=== PATIENT | male | born 1970 | race Caucasian/White ===

== ENCOUNTER 2024-02-23 02:22 | Inpatient (IN) | payer OTHER, SELFPAY ==
[2024-02-23] VITALS (60 sets, daily range): BP systolic 109–154; BP diastolic 55–125; BMI 29.1; BMI 28.8
--- NOTE | 2024-02-23 00:33 | ED.GENMED ---
History of Present Illness
General
Chief Complaint: Chest Pain
Source: patient
Exam Limitations: none
Time Seen by Provider: 02/23/24 00:33
History of Present Illness
History of Present Illness:
See MDM
Past History
Past History
ED Past Medical History: CAD and HTN; Negative Asthma, Hypercholesterolemia or NIDDM
ED Past Surgical History: Cardiac (Cardiac stents)
Social History
Tobacco: Smoker
Alcohol: None
Drug: None
Personal:
Living: with family
Employment: Employed
Family History
Family History: Hypertension
Phy Exam
Physical Exam
Physical Exam:
See MDM
Scores
Heart Score for Chest Pain Patients
STEMI patient?: Yes
Course
Orders/Labs/Results
Orders:
Orders
02/23/24 00:13
ECG [Electrocardiogram (*1)] Urgent
Reason for Study: Chest Pain
EKG- Treatment ONCE
02/23/24 00:20
Cardiac Monitoring- Treatment ONCE
02/23/24 00:24
PTT Urgent
02/23/24 00:25
CMP [Comprehensive Metabolic Panel] Urgent
Complete Blood Count/With Diff Urgent
Troponin I Urgent
MDM/Problems Addressed
Differential Diagnosis Includes:
HPI and MDM Narrative:
54-year-old male presenting with chest pain for the past 2 to 3 hours. Patient has significant past medical history of coronary artery disease with 3 stents placed in 2010. EKG performed in triage is concerning for STEMI. STEMI alert called
immediately.
Case discussed with cardiology at 12:19 AM who will evaluate at bedside
Cardiology at bedside within 15 minutes
Patient is an active smoker still and stopped taking all of his medicine several months ago
Physical exam
General: Uncomfortable
HEENT: protecting airway
Neck: appears supple
CV: No evidence of cyanosis. Mild tachycardia
Resp: No accessory muscle use
Abd: Non-distended
Extremities: No deformities
Neuro: alert
Psych: Normal affect
Skin: Intact
Problems Addressed including Acute and Chronic Conditions affecting care:
1. STEMI
Acuity: acute
Prognosis: unstable
Details: STEMI alert was called immediately. Patient given aspirin, Brilinta and heparin. Patient given multiple doses of nitroglycerin due to ongoing pain
Differential Diagnosis (but not limited to): STEMI, in-stent stenosis
Testing considered: Chest x-ray
Drug therapy (if applicable): OTC meds, please see d/c instruction regarding Rx drugs
Amount and/or Complexity of Data Reviewed
Clinical info obtained from: Patient
External data reviewed: N/A
Labs I independently reviewed (but not limited to): [ ]
Radiology: N/A
Pulse Ox: not hypoxic
EKG independently reviewed: Sinus rhythm, normal axis, ST elevation anteriorly
Bean Snipper: Sinus tachycardia
Critical Care: The high probability of a clinically significant, sudden or life threatening deterioration of the cardiovascular system(s) required my full and direct attention, intervention and personal management. The aggregate critical care time
was 31 minutes. This time is in addition to time spent performing reported procedures but includes the following:
[x] Data Review and interpretation
[x] Patient assessment and monitoring of vital signs
[x] Documentation
[x] Medication orders and management
Risk of Complication:
Social Determinants of health: Good social support
Discussed with other providers: Trials Manager
Escalation of Care includes Admit/Obs: Given the concern for STEMI, will admit to the [employer]
Occasional wrong word or 'sound a like' substitutions may have occurred due to the inherent limitations of voice recognition software. Read the chart carefully and recognize, using context, where substitutions have occurred.
*Critical Care Note
Total Time (30-74mins, 75-104mins- exclusive of procedures): 31 min
ED Attending Note
-
Portions of this chart may have been created with voice recognition software.� Occasional wrong word or��sound alike� substitutions may have occurred due to the inherent limitations of voice recognition software.
Discharge Plan
Departure
Patient Disposition: [facility]
Date of Disposition: 02/23/24
Time of Disposition: 00:42
Admit to: labeling specialist
Presentation/result/management discussed w/ accepting MD/DO: Trials Manager
Discharge Problem:
ST elevation (STEMI) myocardial infarction
Prescriptions:
No Action
atorvastatin 80 mg Tablet
80 mg PO DAILY
aspirin 81 mg Tablet,Delayed Release (Dr/Ec)
81 mg PO DAILY
lisinopril 5 mg Tablet
5 mg PO DAILY
metoprolol succinate 25 mg Tablet Extended Release 24 Hr
25 mg PO DAILY
acetaminophen [acetaminophen] 325 mg tablet
650 mg PO Q6HPRN PRN (Reason: mild pain) Qty: 14 0RF
ibuprofen 200 mg tablet
400 - 600 mg PO Q6HPRN PRN (Reason: moderate pain) Qty: 1 0RF
oxycodone 5 mg tablet
5 mg PO Q6HPRN PRN (Reason: breakthrough/severe pain) Qty: 8 0RF
Interventions
Interventions:
*Risk Screen - Suicide Last Done: 02/23/24 00:32
*General Assessment Last Done: 02/23/24 00:32
*Neglect/Abuse Screening Last Done: 02/23/24 00:32
*ED COVID-19 Vaccine History Last Done: 02/23/24 00:32
Discharge Date and Time
Print Language: KHMER
[2024-02-23 00:38] LABS: % Basophils 0.5 % (0-2); % Eosinophils 0.5 % (0-6); % Immature Granulocytes 0.5 % (0-0.5); % Lymphocytes 34.9 % (20.5-51.1); % Monocytes 10.3 % (1.7-9.3); % Neutrophils 53.3 % (42.2-75.2); Absolute Basophils 0.1 10^3/uL (0-0.2); Absolute Eosinophils 0.1 10^3/uL (0-0.7); Absolute Immature Granulocytes 0.1 10^3/uL (0-0.05); Absolute Lymphocytes 4.6 10^3/uL (1.2-3.4); Absolute Monocytes 1.4 10^3/uL (0.1-0.6); Hematocrit 47.9 % (39.0-52.0); Hemoglobin 16.8 g/dL (13.0-18.0); Mean Corp Hgb Conc. 35.1 g/dL (33.0-37.0); Mean Corpuscular Hgb 30.4 pg (27.0-31.0); Mean Corpuscular Volume 86.6 fL (80.0-94.0); Mean Platelet Volume 10.9 fL (7.4-10.4); Nucleated Red Blood Cells % 0 % (-); Platelet Count 210 10^3/uL (130-400); Red Blood Cell Count 5.53 10^6/uL (4.70-6.10); Red Cell Dist. Width 12.8 % (11.5-14.5); White Blood Cell Count 13.1 10^3/uL (4.8-10.8)
[2024-02-23 00:41] LABS: APTT 26.4 Sec (23.4-35.0)
--- NOTE | 2024-02-23 00:44 | HPS.HSE ---
Family Physician
-
Family Physician:
Chief Complaint
-
Chest Pain.
History of Present Illness
54 y/o male tobacco user with HTN, HLD, left dominant circulation and CAD s/p prior PCI to the mLAD (Xience V 3.5 x 20 AMBER), pLCx (Xience V 4.0 x 15 AMBER) and mLCx (Xience V 3.5 x 23 AMBER) with a CANVAS WORKER APPRENTICE of the non-dominant RCA and the LPDA, presenting
with chest pain beginning approximately 3 hours prior to presentation. On presentation, EKG shows large ST segment elevations in the Anterolateral precordium. laboratory phlebotomist was activated. The patient received heparin, aspirin and ticagrelor in the ER.
Nitro provided no relief. The patient admitted to stopping all medications 3 months ago.
Medical History
Past Medical History
Past Medical History: Reports CAD, HTN and Hypercholesterolemia
Past Surgical History: Reports Cardiac (PCI to the mLAD (Xience V 3.5 x 20 AMBER), pLCx (Xience V 4.0 x 15 AMBER) and mLCx (Xience V 3.5 x 23 AMBER))
Social History
Tobacco: Smoker
Personal: Single
Living: With Family
Family History
Family History: Not pertinent
Allergies / Home Medications
Allergies reflects when Allergies were last updated in [employer].
Home Medications with original date entered in [employer]
Allergy/Medication List:
Not currently taking any medications.
NKDA.
Review of Systems
-
History Source: Patient and Family
A 12 point ROS was completed and negative except as noted: Yes
Constitutional: Reports No Symptoms
EENT: Reports No Symptoms
Respiratory: Reports No Symptoms
Cardiac: Reports Chest Pain
Abdomen/GI: Reports No Symptoms
: Reports No Symptoms
Physical Exam
Vital Signs
Vital Signs
Temp Pulse Resp BP Pulse Ox
36.6 C 97 30 115/88 100
02/23/24 00:32 02/23/24 00:32 02/23/24 00:32 02/23/24 00:32 02/23/24 00:32
Physical Exam
General: Well Developed, Well Nourished, Appears in Distress and Pain
HEENT: NormoCephalic, Anicteric, Moist mucous membranes, Atraumatic, Nose Appears Normal and Ears Appear Normal
Respiratory: Clear and Non Labored Respirations
Cardiac: S1/S2 and Regular Rhythm
Breast: Deferred by me
GI: Non Tender, Non Distended and Normal Bowel Sounds
Rectal: Deferred by Provider
Genito-urinary: Deferred by me
Musculoskeletal: No Clubbing, No Cyanosis and No Edema
Skin: Warm and Dry
Neuro: AO x 3
Psych: Intact Judgment/Insight
Laboratory Results
-
02/23/24 00:25
Laboratory Results
APTT 26.4 Sec (23.4-35.0) 02/23/24 00:24
Data Reviewed
-
Medical Tests (Nuc Med, Echo, EKG etc): Image Personally Visualized and interpreted and Report Reviewed by me
Lab Data: Labs Reviewed by me
Impression/Plan
-
54 y/o male smoker with HTN, HLD, non-compliance and CAD s/p prior PCI (2010) presenting with acute anterolateral STEMI.
#STEMI
-Emergent cardiac catheterization with ad hoc PCI.
-Patient has received appropriate medical therapy.
-Consent signed and on the chart.
-Further instructions to follow.
--- NOTE | 2024-02-23 00:45 | EDRN ---
Patient went upstairs to labor economics teacher after giving report, transported via stretcher with RN and PCT
[2024-02-23 00:53] LABS: ALT (SGPT) 28 U/L (0-50); AST (SGOT) 32 U/L (17-59); Albumin 4.6 g/dl (3.5-5.0); Alkaline Phosphatase 105 U/L (38-126); Blood Urea Nitrogen 20 mg/dl (9-20); Calcium 9.7 mg/dl (8.4-10.2); Carbon Dioxide 21 mmol/L (22-30); Chloride 101 mmol/L (98-107); Estimated Creatinine Clearance 104 ml/min; Glucose 177 mg/dl (70-99); Potassium 3.7 mmol/L (3.5-5.1); Sodium 140 mmol/L (135-145); Total Bilirubin 0.5 mg/dl (0.2-1.3); Total Protein 7.6 g/dl (6.3-8.2); eGFR > 60.00
[2024-02-23 00:57] LABS: Troponin I 0.476 ng/ml
[2024-02-23 01:15] LABS: ACT-LR - POC 393 Seconds (116-155)
[2024-02-23 01:41] LABS: ACT-LR - POC 71 Seconds (116-155)
[2024-02-23 01:47] LABS: ACT-LR - POC 340 Seconds (116-155)
--- NOTE | 2024-02-23 02:05 | ITS.CL.ANGIO ---
Operations And Maintenance Specialist - Angioplasty
Angioplasty
Procedure Report:
CARDIAC CATHETERIZATION REPORT
Date of Procedure: 02/23/2024
Referring: Cassius Conner D.O.
INDICATION: Anterior ST elevation myocardial infarction.
PROCEDURE:
1. Left heart catheterization.
2. Coronary angiography.
3. Aspiration thrombectomy.
4. Percutaneous transluminal coronary angioplasty.
5. Intravascular ultrasound.
6. Intracoronary lithotripsy.
7. Successful PCI of the LAD.
ACCESS:
6 [place] right radial artery.
CATHETERS:
1. 5 [place] JR4.
2. 5 [place] JL 3.5.
3. A 6 [place] EBU 3.5 guiding catheter.
HEMODYNAMIC DATA
Weight (kg): 97.2
AO (s/d/x, mmHg): 117/88/101
LV (s/x mmHg): 128/40
LEFT VENTRICULOGRAPHY: Not performed.
CORONARY ANGIOGRAPHY
Dominance: Left.
Left Main: Normal size, trifurcating vessel. There is no coronary artery disease.
LAD: Large size vessel giving rise to several smaller diagonals before wrapping around the apex and supplying the distal inferior septum. There is acute stent thrombosis and a previously placed mid LAD stent. There is significant,
underappreciated disease distal to the stented segment but more appreciated on intravascular ultrasound.
Ramus: Small size, diminutive vessel.
Circumflex: Large size, dominant vessel giving rise to 2 obtuse marginals and a LPDA. There is a patent stent in the proximal circumflex with no appreciable in-stent restenosis. There is a chronically totally occluded stent in the mid
circumflex, immediately after the origin of the first obtuse marginal. OM 2 and the LPDA are supplied by collaterals from the LAD and the nondominant RCA.
RCA: Small size, nondominant vessel. The vessel is chronically totally occluded in its proximal portion with an epicardial collateral to the RV marginal.
INTERVENTION(S)
1. Successful aspiration thrombectomy of the acute mid LAD stent thrombosis (CHRIS catheter) with bahai of CASSIA-3 flow.
2. Successful percutaneous transluminal coronary angioplasty of the in-stent restenosis (Medtronic Euphora 2.0 x 12 semicompliant balloon, 3.0 x 15 semicompliant balloon) with reduction in stenosis to 60%, maintaining CASSIA-3 flow.
3. Successful intravascular ultrasound for lesion assessment and stent sizing, demonstrating incomplete stent expansion and dense calcification of the previously stented segment as well as severe, underappreciated Denovo disease in the mid LAD
beyond the stented segment.
4. Successful intracoronary lithotripsy of the Denovo mid LAD disease as well as the underexpanded stent segment (shockwave 3.5 x 12 coronary lithotripsy balloon).
5. Successful IVUS guided PCI of the Denovo mid LAD disease as well as the in-stent stenosis lesion (overlapping Medtronic [place] 3.5 x 38 AMBER, 4.0 x 18 AMBER, postdilated with a 3.5 NC balloon throughout and a 4.0 x 15 NC balloon at the
overlap and proximal stent) with reduction in stenosis to 0%, maintaining CASSIA-3 flow with improved stent expansion confirmed on IVUS.
Narrative:
The decision was made to proceed with percutaneous coronary intervention. The diagnostic catheter was removed over a wire and a 6Fr EBU 3.5 guiding catheter was advanced to the aortic root and seated in the left main coronary artery. Additional
heparin was given and a Power Turn Flex wire was advanced into the distal LAD.
Given the high thrombus burden, the decision was made to aggressively anticoagulate and perform aspiration thrombectomy. If appetite with started as a doubles and drip. CHRIS catheter was advanced over the power turn flex wire into the LAD and
aspiration thrombectomy was performed. Thrombus was extracted from the artery and CASSIA-3 flow was restored after thrombectomy. This demonstrated severe in-stent disease within the mid LAD stented segment, approximately 80 to 90%. This also
demonstrated significant de raven disease immediately distal to the stented segment, though not fully appreciated on angiography.
The 80-90% in-stent stenosis lesion was predilated with a 2.0 x 12 semi-compliant balloon to 12 sharif. The 2.0 x 12 semicompliant balloon was withdrawn and a 3.0 x 15 semicompliant balloon was advanced. The stented segment was dilated to 12 sharif.
The decision was made to perform intracoronary imaging. An IVUS catheter was advanced through the guiding catheter and into the ostium of the artery. Ring down was performed once the imaging crystal was no longer inside of the guiding catheter. The
IVUS catheter was advanced into the mid LAD, beyond the stented segment. Intravascular ultrasound was performed in a retrograde fashion using a slow pullback. Intracoronary imaging demonstrated significant, underappreciated coronary disease distal
to the stented segment with moderate to severe calcification. IVUS also revealed a significant amount of in-stent restenosis within the stented segment combined with stent underexpansion at the point of thrombosis. Vessel measurements were taken
for stent sizing.
The IVUS catheter was withdrawn and a 3.5 x 20 noncompliant balloon was advanced. The mid LAD distal to the stented segment was predilated to 12 sharif with good balloon expansion. The stented segment was predilated to 20 sharif with no significant
stent expansion.
A Shockwave 3.5 x 12 coronary lithotripsy balloon was advanced over the wire and into the mid LAD lesion beyond the stented segment. The balloon was sterilely connected to the controller and prepped to negative pressure. Meticulous care was taken
while positioning the shockwave balloon. Once in satisfactory position, the balloon was inflated to 4 sharif. After confirming good contact with the vessel wall, 10 pulses were delivered. After delivering 10 pulses, the balloon was inflated to 6 sharif
then deflated. The entire lesion was treated in a similar manner for total of 4 rounds. We then pulled the shockwave balloon back into the stented segment at the site of dense calcification and stent underexpansion. Shockwave coronary lithotripsy
was repeated in this section for 8 rounds.
The shockwave balloon was withdrawn and a 4.0 x 15 noncompliant balloon was advanced. The underexpanded stent segment was predilated to 16 sharif with good balloon expansion.
The noncompliant balloon was removed and a Medtronic [place] 3.5 x 38 drug-eluting stent was advanced. The stent was positioned in the mid LAD, with the distal aspect distal to the previously stented segment but the proximal margin within the
stented segment. The stent was deployed at 12 atmospheres. The stent balloon was withdrawn and a Medtronic [place] 4.0 x 18 drug-eluting stent was advanced into the stented segment. Meticulous care was taken while positioning the stent,
ensuring that the distal edge of the stent was overlapping with the previously placed mid LAD stent while the proximal stent margin was covering the proximal margin of the previously stented segment. Once we are satisfied with position, the stent
was deployed at 12 sharif. The stent balloon was removed. The 3.5 x 20 noncompliant balloon was advanced into the stented segment and the stents were postdilated to 16 atmospheres in the distal and midportion of the stented segment, 18 sahrif in the
overlap/proximal section. The noncompliant balloon was removed and the 4.0 x 15 noncompliant balloon was readvanced. The stent overlap and proximal stent margin were postdilated to 12 sharif.
Final IVUS was performed showing excellent stent apposition throughout the entire stented segment with good stent expansion throughout. The previously underexpanded section remained very marginally underexpanded, but significantly improved from its
prior appearance.
The IVUS catheter was withdrawn angiography was performed in orthogonal views, confirming good stent expansion and an excellent angiographic result.
As a measure of caution, we took this opportunity to direct the power turn flex wire into the circumflex to make sure that the occluded circumflex stent was in fact chronically totally occluded by probing it with a wire. The wire routinely
deflected away from the circumflex occlusion, consistent with chronic total occlusion rather than acute thrombosis.
The coronary wire was withdrawn and the guide was disengaged from the artery. The catheter was removed over a standard J-wire.
Closure Device: Vascular band.
Radiation (mGy): 741.91
DAP (cm2.Gy): 53.6160
Fluoroscopy time (minutes): 18.1
Sedation time (minutes): 61
CONCLUSIONS
1. Left dominant circulation with chronic total occlusion of the nondominant RCA, patent proximal circumflex stent, ISR MUSIC PUBLICIST of the mid circumflex stent with collateralization of OM 2 and LPDA from the LAD and acute stent thrombosis of the mid LAD
stent with stent underexpansion confirmed on IVUS as well as significant underappreciated mid LAD disease distal to the stented segment, status post successful aspiration thrombectomy (CHRIS catheter), IVUS interrogation with subsequent intracoronary
lithotripsy (shockwave 3.5 x 12 coronary lithotripsy balloon) and IVUS guided PCI (overlapping Medtronic [place] 3.5 x 38 AMBER, 4.0 x 18 AMBER, postdilated with a 3.5 NC balloon throughout and a 4.0 x 15 NC balloon at the overlap and in the
proximal stent) with reduction in stenosis to 0%, restoring CASSIA-3 flow in the LAD with improved stent expansion confirmed on IVUS.
2. Severely elevated filling pressures (LVEDP = 40 mmHg at 97.2 kg).
3. Medication noncompliance.
RECOMMENDATIONS:
1. Expectant management after cardiac catheterization via right radial approach.
2. Limited weight bearing on the right wrist for one week.
3. Dual antiplatelet therapy with aspirin and ticagrelor for at least 12 months, likely lifelong given his disease burden as well as the amount of stent required.
4. Echocardiogram ordered and pending.
5. Continue eptifibatide drip for 18 hours.
6. Guideline directed medical therapy as hemodynamics will tolerate.
7. Aggressive secondary prevention with high-dose, high potency statin.
8. Referral to cardiac rehab.
Copy to: Joshua Sanders D.O.
Mane Guerrier, DO, FACC, FACP
--- NOTE | 2024-02-23 03:00 | PTCARENOTE ---
Rec'd pt from engineering laboratory technician as IVU overflow with TR band on right radial. Labs repeated as ordered. Integrilin gtt maintained. Dr Ramachandran at bedside for education. EKG repeated. Morphine for pain. 6L nasal cannula, unable to wean at this time. Pt
encouraged to cough/deep breathe. Pt vomited large amount, zofran given with relief. Will monitor.
[2024-02-23] MEDS: ZOFRAN 4 MG IV ×4 (03:07→22:15)
[2024-02-23] MEDS: MORPHINE SULFATE 2 MG IV ×6 (03:08→22:15)
[2024-02-23 03:43] LABS: Hematocrit 48.3 % (39.0-52.0); Hemoglobin 17.1 g/dL (13.0-18.0); Mean Corp Hgb Conc. 35.4 g/dL (33.0-37.0); Mean Corpuscular Hgb 31.6 pg (27.0-31.0); Mean Corpuscular Volume 89.3 fL (80.0-94.0); Mean Platelet Volume 11.2 fL (7.4-10.4); Platelet Count 191 10^3/uL (130-400); Red Blood Cell Count 5.41 10^6/uL (4.70-6.10); Red Cell Dist. Width 12.8 % (11.5-14.5); White Blood Cell Count 14.8 10^3/uL (4.8-10.8)
[2024-02-23 04:19] LABS: Blood Urea Nitrogen 20 mg/dl (9-20); Calcium 9.3 mg/dl (8.4-10.2); Carbon Dioxide 23 mmol/L (22-30); Chloride 101 mmol/L (98-107); Estimated Creatinine Clearance 117 ml/min; Glucose 185 mg/dl (70-99); Potassium 3.7 mmol/L (3.5-5.1); Sodium 140 mmol/L (135-145); eGFR > 60.00
[2024-02-23] MEDS: INTEGRILIN 100 IV (05:57)
[2024-02-23] MEDS: BENADRYL 25 MG IV (06:00)
[2024-02-23] MEDS: LASIX 80 MG IV (07:13)
[2024-02-23 08:05] LABS: Glycohemoglobin (HgbA1c) 5.8 % (4.0-5.6)
--- NOTE | 2024-02-23 09:06 | W.PN.CARDCBS ---
Addendum entered and electronically signed by Hossein Kidd MD 02/23/24 11:21:
Attending addendum: Patient seen and examined. I have spoken with Dr. Guerrier and reviewed angiogram. He thrombosed his LAD stent after discontinuing all medications. The LAD was 100% occluded mid and the RCA is 100% and the LCx/OM is 100%. He
has been short of breath and on 12 L. Feels poorly. Ongoing nausea and chest pressure. Angiogram looked good
RECOMMENDATION:
-We started IV nitro this am and are titrating
-He received Furosemide 80mg IV
-Will check stat echocardiogram
-May need to consider right heart catheterization of respiratory status does not improve
Original Note:
Today's Communication / Plan
-
Echo pending
Follow urine output after starting Nitro gtt, Lasix 80 mg IV given at 0700
Giving a dose of morphine now
N/V improving after 2nd dose of Zofran
Troponin trending
Integrilin for 18 hours and getting back on aspirin, new to Brilinta
Impression / Plan
-
PCP: Dr. Jarquin
Cardiology: Dr. Sanders, last seen 03/30/23
IMPRESSION:
Admitted with acute STEMI 02/23/24
CAD
MV CAD s/p 4.0 mm and 3.5 mm Xience to prox Circ and 3.5 mm Xience to mid LAD 03/13/11
STEMI with occluded LAD and stent thrombosis of previously placed mid LAD stents treated aspiration thrombectomy, balloon angioplasty, shockwave lithotripsy and placement of new 3.5 mm and 4 mm Hiram AMBER to LAD with overlap of the previously placed
proximal stent 02/23/24
patent previously placed prox Circ stent and and RN PRIVATE DUTY of stent in the mid Circ by cta 02/23/24
RN PRIVATE DUTY RCA stable from last cath 03/13/11
Medication noncompliance
Ongoing smoker
Acute HF unknown EF
Hyperlipidemia
Hypertension
Family history of premature coronary disease
Nausea and vomiting
Hyperglycemia, prediabetes
Acute hypoxic respiratory insufficiency
Echo 12/01/12: EF 60%, mild concentric LVH without WMA, normal RV size and function, no AAS, no MR
Echo 02/23/24: Study pending
Plan:
-Patient came to [facility] very early 02/23/24 AM with chest pain after stopping all of his medications including aspirin 3 months ago. Patient does not have a reason for why he stopped all of his medications. Patient with STEMI on admission and evidence
of previously placed LAD stent and also RN PRIVATE DUTY of previously placed mid Circ stent. Patient had treatment of LAD with aspiration thrombectomy and placement of a new 3.5 mm and 4 mm [place] AMBER in the LAD overlapping the previously placed LAD stent. The
RN PRIVATE DUTY could not be opened.
-Integrilin running since 0500 and plan was for 18 hours of therapy/infusion
-Aspirin 324 mg chewable given in ER very early 02/23/24. Aspirin 81 mg daily ordered. Patient had stopped aspirin prior to admission
-Brilinta 90 mg BID ordered, he hasn't had his dose yet 02/23/24 AM due to ongoing vomiting
-Zofran 4 mg IV x1 given 02/23/24 at 0307 and again at 0858, he is feeling better after the 2nd dose.
-Start Protonix 40 mg IV daily now
-Morphine 2 mg IV x1 now
-ECG reviewed by me 02/23/24 with SR and anterolateral ST elevations that are improved compared to last ECG from 0216 AM
-Troponin was 0.476 on admission and then up to 43.9. Next Troponin pending
-Nitro gtt started at 5 mcg and will follow BP
-Eventually restart Toprol XL 25 mg daily
-Cardiac rehabilitation consult
-Wearing 11 L midflow. Lasix 80 mg IV x1 given 02/23/24
Progress Note - Garland Machine Operator
Subjective
Date of Service: February 23, 2024
He is nausea
Objective
Labs:
02/23/24 03:06
02/23/24 03:06
Labs
Hgb 17.1 g/dL (13.0-18.0) 02/23/24 03:06
Hct 48.3 % (39.0-52.0) 02/23/24 03:06
Plt Count 191 10^3/uL (130-400) 02/23/24 03:06
APTT 26.4 Sec (23.4-35.0) 02/23/24 00:24
Sodium 140 mmol/L (135-145) 02/23/24 03:06
Potassium 3.7 mmol/L (3.5-5.1) 02/23/24 03:06
BUN 20 mg/dl (9-20) 02/23/24 03:06
Creatinine 0.8 mg/dL (0.7-1.3) 02/23/24 03:06
Glucose 185 mg/dl (70-99) H 02/23/24 03:06
Troponins
02/23/24 02/23/24
00:25 03:06
Troponin I 0.476 H* 43.900 H* D
Vital Signs and I&O:
Vital Signs
Temp Pulse Resp BP Pulse Ox
98.5 F 110 26 145/103 89
02/23/24 08:00 02/23/24 07:13 02/23/24 07:00 02/23/24 07:13 02/23/24 07:00
Vital Signs
Temp Pulse Resp BP Pulse Ox
98.5 F 110 26 145/103 89
02/23/24 08:00 02/23/24 07:13 02/23/24 07:00 02/23/24 07:13 02/23/24 07:00
Intake & Output
02/21/24 02/22/24 02/23/24 02/24/24
06:59 06:59 06:59 06:59
Intake Total 648 / 810 162 / 162
Output Total 500 / 500
Balance 148 / 310 162 / 162
Physical Exam
Physical Exam
GEN: NAD. AAOx3
HEENT: EOMI, MMM
LUNGS: Wearing 11 L midflow, no audible wheeze
CV: Reg, S1/S2, no murmur
ABD: ND
EXT: No clubbing, cyanosis, lesions or edema B/L
NEURO: Gross non-focal
SKIN: Warm, dry and pink. No rash
[2024-02-23] MEDS: NITROGLYCERIN PREMIX 250 IV (09:10)
--- NOTE | 2024-02-23 10:00 | PTCARENOTE ---
pt awake and oriented, pt ashen in color , he has been vomiting frequently and vomiting 200ml out hourly , he is now having some blood with his vomiting , he continues on Integrilin , Dr Kidd aware , he had an EKG and troponin level drawn , he was
placed on NTG gtt for complaints of chest pain unrelieved by morphine he is currently on 25mcg with minimal relief , states his chest pain is 8 out out of 10. awaiting for lab results
[2024-02-23] MEDS: NSS (PRESERVATIVE FREE) 10 ML IV (10:13)
[2024-02-23] MEDS: PROTONIX IV 40 MG IV (10:13)
[2024-02-23 11:50] LABS: INR 1.04; PT 13.5 Sec (11.4-14.6)
[2024-02-23 12:01] LABS: Hematocrit 48.2 % (39.0-52.0); Hemoglobin 17.2 g/dL (13.0-18.0); Mean Corp Hgb Conc. 35.7 g/dL (33.0-37.0); Mean Corpuscular Hgb 30.8 pg (27.0-31.0); Mean Corpuscular Volume 86.4 fL (80.0-94.0); Mean Platelet Volume 10.6 fL (7.4-10.4); Platelet Count 192 10^3/uL (130-400); Red Blood Cell Count 5.58 10^6/uL (4.70-6.10); Red Cell Dist. Width 13.1 % (11.5-14.5); White Blood Cell Count 17.4 10^3/uL (4.8-10.8)
[2024-02-23] MEDS: KCL 270 MEQ IV (12:16)
[2024-02-23] MEDS: LOW STRENGTH ASPIRIN 81 MG PO (12:16)
[2024-02-23] MEDS: BRILINTA 90 MG PO ×2 (12:16→23:24)
[2024-02-23 12:19] LABS: ALT (SGPT) 247 U/L (0-50); Albumin 4.3 g/dl (3.5-5.0); Alkaline Phosphatase 95 U/L (38-126); Blood Urea Nitrogen 19 mg/dl (9-20); Carbon Dioxide 28 mmol/L (22-30); Chloride 99 mmol/L (98-107); Estimated Creatinine Clearance 117 ml/min; Glucose 192 mg/dl (70-99); Magnesium 1.7 mg/dl (1.6-2.3); Potassium 4.3 mmol/L (3.5-5.1); Sodium 138 mmol/L (135-145); Total Bilirubin 0.9 mg/dl (0.2-1.3); Total Protein 7.2 g/dl (6.3-8.2); eGFR > 60.00
--- NOTE | 2024-02-23 12:39 | W.PN.UPDATE ---
Update Note
Progress Note Update
Returned to see patient. Nitro gtt running at 150 mcg, patient reporting ongoing chest discomfort, but is not sure if he is nauseous or in pain. Nausea has improved after 2nd dose of Zofran. He tolerated a 2nd dose of morphine as well. BP 135/85.
Integrilin infusing. Patient was able to swallow aspirin and Brilinta tablets in front of me. Troponin from 0915 came back at 244. Next Troponin at 1415. Updated patient's mother and brother at the bedside. Reviewed cath results including LAD
disease and the chronic mid Circ lesion. Reviewed critical state and ongoing efforts. Critical care time 33 minutes.
[2024-02-23 13:16] LABS: AST (SGOT) 1699 U/L (17-59)
[2024-02-23] MEDS: BUMEX 50 IV ×2 (13:25→20:03)
[2024-02-23] MEDS: MAGNESIUM SULFATE 102 GRAMS IV (13:37)
--- NOTE | 2024-02-23 14:06 | CON.INTV ---
Consultation
Consultation Request
Date/Time Consultation Requested: 02/23/2024
Date/Time Consultation Performed: 02/23/2024
Requesting Provider: Dr. Kidd
Performing Provider: Dr. Torey Boss
Reason for Consultation: Status postacute ME, hypoxemic respiratory failure.
Medical History
-
History of Present Illness:
54-year-old man who is an active a smoker, has history of hypertension, hyperlipidemia, coronary artery disease status post prior PCI to the mid LAD and circumflex presented with acute onset chest pain 3 hours prior to admission. He was found to
have a ST elevation myocardial infarction. Emergently taken to the cardiac catheterization lab 02/23/2024.
Underwent aspiration thrombectomy of acute mid LAD stent thrombosis. Percutaneous transluminal coronary angioplasty and stent restenosis.
Patient found to have decreased LVEF down to 20-30% on echocardiogram compared to normal in 2020.
Patient admits to have stopped all medications about 3 months ago. He was using a natural remedy.
Since earlier today has developed significant vomiting, shortness of breath, discomfort. Hypoxemic.
Transition to ICU level of care the morning of 02/23/2024.
Past Medical History
Past Medical History: Other (See assessment and plan)
Social History
Tobacco: Smoker
Drug: None
Personal: Single
Living: With Family
Family History
Family History: Reviewed & Not Pertinent
Allergies / Home Medications
Allergies
Allergy/AdvReac Type Severity Reaction Status Date / Time
No Known Allergies Allergy Verified 09/11/22 07:40
Home Medications
�Medication �Instructions �Recorded �Confirmed �Last Taken �Type
aspirin 81 mg tablet,delayed 81 mg PO DAILY 09/05/22 09/11/22 09/10/22 07:30 History
release
atorvastatin 80 mg tablet 80 mg PO DAILY 09/05/22 09/11/22 09/10/22 07:30 History
lisinopril 5 mg tablet 5 mg PO DAILY 09/05/22 09/11/22 09/10/22 07:30 History
metoprolol succinate 25 mg 25 mg PO DAILY 09/05/22 09/11/22 09/11/22 06:15 History
tablet,extended release 24 hr
acetaminophen 325 mg tablet 650 mg (2 x 325 mg) PO Q6HPRN PRN 09/11/22 Unknown Rx
mild pain #14 tabs
ibuprofen 200 mg tablet 400 - 600 mg (2 - 3 x 200 mg) PO 09/11/22 Unknown Rx
Q6HPRN PRN moderate pain #1 tab
oxycodone 5 mg tablet 5 mg PO Q6HPRN PRN 09/12/22 Unknown Rx
breakthrough/severe pain #8 tabs
Review of Systems
-
History Source: Patient
All other systems: Negative unless noted
Vitals / Labs / Diagnostic Testing
Vital Signs
Temp Pulse Resp BP Pulse Ox
98.5 F 89 20 141/104 87
02/23/24 08:00 02/23/24 10:00 02/23/24 10:00 02/23/24 10:00 02/23/24 10:00
Lab Data
02/23/24 11:50
02/23/24 11:50
Laboratory Results
02/23/24
00:24
PT 13.5
INR 1.04
APTT 26.4
Diagnostic Testing:
Physical Exam
-
HEENT: Normocephalic
Cardiovascular: S1/S2
Respiratory: Rales
GI: Soft and Non Distended
Neurology: Awake and Alert
Skin: Warm
General: Comfortable
Assessment
-
ST elevation myocardial infarction 02/23/2024: Due to medical noncompliance-stop taking all medications about 3 months ago.
occluded LAD and stent thrombosis of previously placed mid LAD stents treated aspiration thrombectomy, balloon angioplasty, shockwave lithotripsy and placement of new 3.5 mm and 4 mm [place] AMBER to LAD with overlap of the previously placed proximal
stent 02/23/24
Ischemic cardiomyopathy-new EF 20 to 30%
troponin .0476> 43>244
Acute hypoxemic respiratory failure-currently mid flow oxygen
chest x-ray with mild pulmonary edema. Left lower lobe infiltrate possibly atelectatic
Suspect mild pulmonary edema
Vomiting: Unclear if this is ischemia equivalent versus gastritis as patient has some bloody vomiting.
Hyperglycemia
Laded hemoglobin A1c 5.8
Leukocytosis likely stress
This increased LFT disease-likely due to acute on
Conditions present prior admission:
Coronary artery disease status post stent placement to LAD and circumflex in 2010.
Tobacco abuse
Hypertension
Family history of premature coronary artery disease
Plan/recommendation:
Patient is critically ill: New onset ischemic cardiomyopathy, in-stent thrombosis multivessel coronary artery disease. Status post intervention 02/23/2024. Ejection fraction 20 to 30%.
Hypoxemic respiratory failure likely due to pulmonary edema.
Continue with antiplatelets, anticoagulants.
Nitroglycerin drip will be titrated for chest pain
Morphine IV as needed for chest pain
Trend troponins
Diuresis was given earlier today follow urinary output.
Continue oxygen supplementation to maintain pulse ox above 90%.
-
Monitor for arrhythmias.
Potassium and magnesium will be repleted as necessary.
Patient for right heart catheterization-today.
-
Vomiting-some bloody emesis, gastritis versus ischemic equivalent.
Continue cardiac management
improved with Zofran
IV PPI
Monitor H&H
Will keep n.p.o. for now only pills
. Holding IV fluids, appears to be volume overloaded
-
Follow-up leukocytosis.
No evidence for fever
Follow LFTs-elevated likely due acute ME
-
DVT prophylaxis with Lovenox
-
Critical Care time 42 mins -- The patient is admitted for acute critical illness for the treatment of vital organ failure and/or prevention of further life-threatening conditions. Total care includes time spent in review of history, physical exam,
medications, hemodynamic/ventilator parameters, laboratory data, imaging and discussion with house staff, pharmacy, respiratory therapy, delinquency counselor, and nursing.
Reviewed data reviewed:
echocardiogram 02/23/2024: Report reviewed
CONCLUSIONS
1. Mild concentric left ventricular hypertrophy with multiple regional wall
motion abnormalities, EF 25-30%, see below. Elevated left atrial pressure
2. Mitral annular calcification without mitral regurgitation and with normal
left atrium
3. Aortic sclerosis without stenosis, no aortic regurgitation
4. Normal right heart, could not determine pulmonary artery pressure
In August 2020 the EF was 50 to 55% with mild LVH.
--- NOTE | 2024-02-23 14:44 | W.PN.UPDATE ---
Update Note
Progress Note Update
Attending addendum: Patient remains hypoxic and heart failure. I believe a right heart catheterization would provide significant data point for titration of medications. I explained the procedure and he initially was willing to proceed then stated
that he did not want to have any additional procedures done. I explained that this was a very low risk procedure and risk for major complications is clearly less than 1%. He again refused. Family members arrived and I was called from nursing
stating that he is now agreeable to having right heart catheterization done.
--- NOTE | 2024-02-23 15:35 | ITS.CL.CATH ---
Printed Circuit Board Panels Trimmer - Catheterization
Cardiac Catheterization
Procedure Report:
RIGHT HEART CATHETERIZATION
Date of Procedure: February 23, 2024
Referring: Dr. Joshua Sanders
INDICATION: Cardiogenic shock with anterior wall myocardial infarction secondary to stent thrombosis after discontinuation of all medications. The LAD underwent successful stenting. The circumflex and the RCA were found to be chronically occluded.
Hemodynamics (mmHg):
RA (m) : 13
RV (s/d,m) : 43/13, 18
PA (s/d, m) : 45/26, 34
PCWP (m) : 28
BPcuff: 131/72, 95
Cardiac Output : 4.05 L/min and Cardiac Index : 1.85 L/min/m-2
Systemic vascular resistance: 20.2 Wood units or 1620 [id number](-5)
Pulmonary vascular resistance: 1.5 Wood units or 119 osatp-[id number]-[id number](-5)
RADIATION SUMMARY: Fluoro Time (min): 1.2, Dose (mGy): 11, DAP (Gy.cm2) : 1.6
CONCLUSION:
1. Severely reduced cardiac index
2. Modestly elevated left ventricular filling pressures
Copy to: Dr. Joshua Sanders
[2024-02-23] MEDS: CRESTOR 40 MG PO (18:45)
[2024-02-23] MEDS: LOVENOX 40 MG SC (18:45)
--- NOTE | 2024-02-23 19:00 | PTCARENOTE ---
pt was started on Bumex at 1330 for diaeresis , his NTG gtt up to 170mcg , hes was having less chest pain with the NTG at 170mcg , his blood pressure was in the 140s -150s throughout the day , nausea and vomiting continued and Dr Kidd in to
discuss with patient to have a R heart cath , pt was initially did not want the cath then after he spoke to his family he was agreeable have the procedure He went to the tutorial laboratory supervisor at 1500 and returned to ICU at 1600 , his PA cath was at the 55cm
maryuri on arrival, his PA 15/4 RAP -4 , this was a change from the [facility] in the tutorial laboratory supervisor where his PAP 45/[address]idd aware and at bedside , CXR was done and PA cath was repositioned now at 45cm , CXR was again done to confirm placement
and Dr Kidd aware of result , pt had diuresed 1300ml of urine since 14:00 , his nitro gtt is now down to 50mcg , he is feeling much better , no further vomiting at this time .
--- NOTE | 2024-02-23 19:45 | PTCARENOTE ---
received report from RN, dual RN med rec, pt AAOx3, NSR on the monitor, Pily 45cm, +radials and pedals no edema, lungs diminished SAT's 95% 5L NC, BSx4 hypoactive round soft non-tender, using urinal clear yellow output, skin dry and intact, 20G LA,
20G LAC, Nitro 50mcg, bumex gtt 1mg, pt able to make needs known, pt states chest pain is a 1-2/10, call kelley within reach, otherwise refer to documentation
[2024-02-24] VITALS (43 sets, daily range): BP systolic 90–123; BP diastolic 64–95; BMI 27.9
--- NOTE | 2024-02-24 00:09 | PTCARENOTE ---
systems reviewed, pt reports minimal 1-2/10 chest pain, gtts titrated per worklist, no change from prior assessment, otherwise refer to documentation
[2024-02-24] MEDS: NITROGLYCERIN PREMIX 250 IV (00:12)
[2024-02-24 04:52] LABS: Hematocrit 44.5 % (39.0-52.0); Hemoglobin 15.8 g/dL (13.0-18.0); Mean Corp Hgb Conc. 35.5 g/dL (33.0-37.0); Mean Corpuscular Hgb 30.9 pg (27.0-31.0); Mean Corpuscular Volume 86.9 fL (80.0-94.0); Mean Platelet Volume 11.1 fL (7.4-10.4); Platelet Count 170 10^3/uL (130-400); Red Blood Cell Count 5.12 10^6/uL (4.70-6.10); Red Cell Dist. Width 13.2 % (11.5-14.5); White Blood Cell Count 17.8 10^3/uL (4.8-10.8)
[2024-02-24 05:31] LABS: Blood Urea Nitrogen 22 mg/dl (9-20); Calcium 8.2 mg/dl (8.4-10.2); Carbon Dioxide 34 mmol/L (22-30); Chloride 95 mmol/L (98-107); Estimated Creatinine Clearance 94 ml/min; Glucose 126 mg/dl (70-99); Magnesium 1.7 mg/dl (1.6-2.3); Potassium 3.1 mmol/L (3.5-5.1); Sodium 140 mmol/L (135-145); eGFR > 60.00
[2024-02-24] MEDS: BUMEX 50 IV (06:15)
[2024-02-24] MEDS: KCL 270 MEQ IV ×2 (07:56→17:12)
[2024-02-24] MEDS: LOW STRENGTH ASPIRIN 81 MG PO (08:02)
[2024-02-24] MEDS: NSS (PRESERVATIVE FREE) 10 ML IV (08:02)
[2024-02-24] MEDS: BRILINTA 90 MG PO ×2 (08:02→20:03)
[2024-02-24] MEDS: PROTONIX IV 40 MG IV (08:03)
--- NOTE | 2024-02-24 08:15 | PTCARENOTE ---
Assumed care of pt at 0715 following shift report. Pt asleep and woken to name for assessment and care. Denies c/o CP, SOB or N. Skin W/D. Rt IJ Introducer w/ PA Catheter noted-leveled and zero-balanced. PA waveform wnl. Bumex and Ntg gtts infusing
as documented. Pt using urinal independently to void. Taking sips of CL w/o nausea. Physical assessment completed as documented. Comfort care provided. Call warren w/in pt reach.
--- NOTE | 2024-02-24 08:25 | W.PN.CARDCBS ---
Today's Communication / Plan
-
He has diuresed well. Will wean off IV nitro and recommend DC [place]Paolo catheter.
Would stop Bumex drip and start 2 mg IV every 12
Continue aspirin and Brilinta
Continue Crestor
Start Coreg 3.125 mg p.o. twice daily if blood pressure allows
Impression / Plan
-
PCP: Dr. Jarquin
Cardiology: Dr. Sanders, last seen 03/30/23
IMPRESSION:
Admitted with acute STEMI 02/23/24
CAD
MV CAD s/p 4.0 mm and 3.5 mm Xience to prox Circ and 3.5 mm Xience to mid LAD 03/13/11
STEMI with occluded LAD and stent thrombosis of previously placed mid LAD stents treated aspiration thrombectomy, balloon angioplasty, shockwave lithotripsy and placement of new 3.5 mm and 4 mm [place] AMBER to LAD with overlap of the previously placed
proximal stent 02/23/24
patent previously placed prox Circ stent and and SUPERVISOR QUILTING of stent in the mid Circ by ctah 02/23/24
SUPERVISOR QUILTING RCA stable from last cath 03/13/11
Medication noncompliance
Ongoing smoker
Acute HF unknown EF
Hyperlipidemia
Hypertension
Family history of premature coronary disease
Nausea and vomiting
Hyperglycemia, prediabetes
Acute hypoxic respiratory insufficiency
Echo 12/01/12: EF 60%, mild concentric LVH without WMA, normal RV size and function, no AAS, no MR
Echo 02/23/24: EF 25 to 30%, aortic sclerosis.
Right heart catheterization 02/23/2024, RA 13, PA 45/26, PCWP 28, CO 4.05, CI 1.85
Plan:
-Patient came to [facility] very early 02/23/24 AM with chest pain after stopping all of his medications including aspirin 3 months ago. Patient does not have a reason for why he stopped all of his medications. Patient with STEMI on admission and evidence
of previously placed LAD stent and also SUPERVISOR QUILTING of previously placed mid Circ stent. Patient had treatment of LAD with aspiration thrombectomy and placement of a new 3.5 mm and 4 mm [place] AMBER in the LAD overlapping the previously placed LAD stent. The
SUPERVISOR QUILTING could not be opened.
-Right heart catheterization numbers reviewed. His wedge pressure was elevated and he was placed on a Bumex drip. Cardiac index was low consistent with cardiogenic shock.
-He has diuresed well overnight. Would recommend removing [place] catheter. Would wean off IV nitroglycerin and start Coreg 3.125 mg p.o. twice daily today. Blood pressure is stable.
-Would stop Bumex drip and start Bumex 2 mg IV twice daily.
-Continue aspirin and Brilinta.
-Continue high-dose statin.
-Creatinine is normal. Replete potassium.
-He is clinically improving.
-CC time 33 min
-We discussed the importance of compliance
Progress Note - Microstrategy Developer
Subjective
Date of Service: February 24, 2024
No chest pains. Breathing is significantly improved. Has diuresed well on Bumex drip.
Objective
Labs:
02/24/24 04:08
02/24/24 04:08
Labs
Hgb 15.8 g/dL (13.0-18.0) 02/24/24 04:08
Hct 44.5 % (39.0-52.0) 02/24/24 04:08
Plt Count 170 10^3/uL (130-400) 02/24/24 04:08
PT 13.5 Sec (11.4-14.6) 02/23/24 00:24
INR 1.04 02/23/24 00:24
APTT 26.4 Sec (23.4-35.0) 02/23/24 00:24
Sodium 140 mmol/L (135-145) 02/24/24 04:08
Potassium 3.1 mmol/L (3.5-5.1) L D 02/24/24 04:08
BUN 22 mg/dl (9-20) H 02/24/24 04:08
Creatinine 1.0 mg/dL (0.7-1.3) 02/24/24 04:08
Glucose 126 mg/dl (70-99) H 02/24/24 04:08
Troponins
02/23/24 02/23/24 02/23/24
00:25 03:06 09:41
Troponin I 0.476 H* 43.900 H* D 244.000 H* D
02/23/24 02/23/24
13:20 19:04
Troponin I 263.000 H* 194.000 H* D
Vital Signs and I&O:
Vital Signs
Temp Pulse Resp BP Pulse Ox
98.5 F 94 19 109/79 92
02/24/24 07:51 02/24/24 03:30 02/24/24 03:30 02/24/24 03:30 02/24/24 03:30
Vital Signs
Temp Pulse Resp BP Pulse Ox
98.5 F 94 19 109/79 92
02/24/24 07:51 02/24/24 03:30 02/24/24 03:30 02/24/24 03:30 02/24/24 03:30
Intake & Output
02/22/24 02/23/24 02/24/24 02/25/24
06:59 06:59 06:59 06:59
Intake Total 648 / 810 2012.2
Output Total 500 / 500 4425 / 4425
Balance 148 / 310 -2411.8 / -2411.8
Physical Exam
Physical Exam
GEN: No distress, awake, Ox3
HEENT: supple, anicteric, mmm, right IJ [place]
LUNGS: CTA, no wheezes/rales
CV: Reg, S1/S2, 1/6 syst LSB, no gallop
ABD: soft, BS+, NT/ND
EXT: No edema
NEURO: Gross non-focal
SKIN: No rash
[2024-02-24] MEDS: TYLENOL 650 MG PO (10:08)
--- NOTE | 2024-02-24 10:35 | CM ---
CM following re: discharge planning.
Discussed in Rounds, reviewed pt's chart, met with pt.
Pt is a 54 year old male, admitted with primary dx of Chest pain.
Pt reports he lives with son in a 2SH, 2 steps to enter, has 2 supportive children. 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 Pt reports he has family cardiac history, had stent placed in his 31th.
PCP: Pter Jarquin
Pharmacy: [facility].
D/C plan: home with anticipated no needs. Family to transport at discharge.
CM will follow with discharge plan updates as hospitalization progresses
--- NOTE | 2024-02-24 12:10 | PTCARENOTE ---
Ntg gtt tapered to off at 1130. Bumex gtt d/c'ed at 1200 (timing per VO from Dr eLvine). Pt continues to rest quietly in bed, napping and watching TV. Denies c/o CP, SOB or N. Pt has been tolerating clear liquids. No changes from previous
assessment findings. CVICU crinkling machine operator notified of need to remove PA catheter. Call kelley remains w/in pt reach and safe environment maintained.
[2024-02-24] MEDS: COREG 3.125 MG PO ×2 (12:14→20:03)
[2024-02-24] MEDS: MAGNESIUM SULFATE 100 IV (12:16)
--- NOTE | 2024-02-24 12:24 | W.PN.INTV ---
Today's Communication / Plan
Recommendations
Discontinue PA catheter
Continue diuretics, hopefully can discontinue Bumex drip
Hopefully can discontinue nitroglycerin drip
Continue PPI for now
Follow H&H
Advance to clear diet
Hopefully can start getting out of bed later today.
Remains critical care level for now
Assessment
-
ST elevation myocardial infarction 02/23/2024: Due to medical noncompliance-stop taking all medications about 3 months ago.
occluded LAD and stent thrombosis of previously placed mid LAD stents treated aspiration thrombectomy, balloon angioplasty, shockwave lithotripsy and placement of new 3.5 mm and 4 mm [place] AMBER to LAD with overlap of the previously placed proximal
stent 02/23/24
Ischemic cardiomyopathy-new EF 20 to 30%
troponin .0476> 43>244
Acute hypoxemic respiratory failure-currently mid flow oxygen
chest x-ray with mild pulmonary edema. Left lower lobe infiltrate possibly atelectatic
Suspect mild pulmonary edema
Vomiting: Unclear if this is ischemia equivalent versus gastritis as patient has some bloody vomiting.
Hyperglycemia
Laded hemoglobin A1c 5.8
Leukocytosis likely stress
This increased LFT disease-likely due to acute on
Conditions present prior admission:
Coronary artery disease status post stent placement to LAD and circumflex in 2010.
Tobacco abuse
Hypertension
Family history of premature coronary artery disease
Plan/recommendation:
Patient is critically ill: New onset ischemic cardiomyopathy, in-stent thrombosis multivessel coronary artery disease. Status post intervention 02/23/2024. Ejection fraction 20 to 30%-decline from prior echocardiogram.
Hypoxemic respiratory failure likely due to pulmonary edema.
-
[place]-Paolo catheter in place
Hemodynamics improved
Responded to nitroglycerin drip and Bumex drip
Hopefully can be discontinued today
Continue with cardiac management
Discussed with cardiology earlier today, PA catheter will be discontinued later today.
Troponin trending lower
Renal function is normal
Hypokalemia noted, will be repleted.
Magnesium also will be repleted
Will continue to follow as the patient remains on diuretics.
-
Monitor for arrhythmias.
-
Vomiting-some bloody emesis, gastritis versus ischemic equivalent.
Resolved 02/24/2024
Benign abdominal exam
Continue Protonix
H&H is stable
Advance diet to clears
Continue cardiac management
-
Follow-up leukocytosis. Remains afebrile. Suspect leukocytosis are related to stress post NE.
Follow LFTs-elevated likely due acute NE
-
DVT prophylaxis with Lovenox
-
Critical Care time 31 mins -- The patient is admitted for acute critical illness for the treatment of vital organ failure and/or prevention of further life-threatening conditions. Total care includes time spent in review of history, physical exam,
medications, hemodynamic/ventilator parameters, laboratory data, imaging and discussion with house staff, pharmacy, respiratory therapy, implementation director, and nursing.
Reviewed data reviewed:
echocardiogram 02/23/2024: Report reviewed
CONCLUSIONS
1. Mild concentric left ventricular hypertrophy with multiple regional wall
motion abnormalities, EF 25-30%, see below. Elevated left atrial pressure
2. Mitral annular calcification without mitral regurgitation and with normal
left atrium
3. Aortic sclerosis without stenosis, no aortic regurgitation
4. Normal right heart, could not determine pulmonary artery pressure
In August 2020 the EF was 50 to 55% with mild LVH.
Subjective Dataa
Subjective Data
Date of Service:
Date of Service: February 24, 2024
Chief Complaint: Solution Maker Follow Up (Acute ST elevation myocardial infarction/cardiogenic shock)
Subjective:
Feels better this morning
Remains on nitroglycerin drip
Bumex drip
denies significant abdominal pain
No further vomiting
Shortness of breath improved
Review of Systems
General: Fever (n)
Cardiopulmonary: Dyspnea (Improved), Cough (n) and Sputum Production (n)
GI: Abdominal Pain (n) and Nausea (n)
Neuro: Headache (n)
Objective Data
Data Reviewed
Vital Signs / I&O / Oxygen:
Vital Signs
Temp Pulse Resp BP Pulse Ox
98.4 F 91 15 121/86 93
02/24/24 12:01 02/24/24 12:14 02/24/24 10:30 02/24/24 12:14 02/24/24 10:30
Intake and Output
02/23/24 02/24/24 02/25/24
06:59 06:59 06:59
Intake Total 648 / 810 2013.2 / 2033.2 837.0 / 837.0
Output Total 500 / 500 4425 / 4425 650 / 650
Balance 148 / 310 -2411.8 / -2391.8 187.0 / 187.0
SaO2 93
Nasal Cannula flow liters per 5
minute
Physical Exam
General: Comfortable
HEENT: Normocephalic
Cardiovascular: S1-S2
Respiratory: Crackles and Non-Labored Respirations
GI: Soft, Non Distended and Non Tender
Neurology: Awake, Alert, AO x 3 and No Motor Deficits
Skin: Warm
Labs/Micro/Reports
Lab Data
02/24/24 04:08
02/24/24 04:08
--- NOTE | 2024-02-24 15:45 | PTCARENOTE ---
WEB DEVELOPMENT INTERN to room and removed PA catheter- Rt IJ Introducer remains in place. Dr Boss updated on pt's present condition- orders received to advance pt's diet as tolerated and pt OK to get OOB to chair. Pt sat at edge of bed to complete hygiene and
then transferred to chair w/ supervision. Pt tolerated increased activity w/o complication or complaint. Gait steady. Call kelley w/in pt reach. Pt's mother and brother visiting w/ pt in room. No additional changes from previous assessment findings or
complaints received.
[2024-02-24 16:17] LABS: Potassium 3.2 mmol/L (3.5-5.1)
[2024-02-24] MEDS: KCL 40 MEQ PO (17:14)
[2024-02-24] MEDS: CRESTOR 40 MG PO (17:15)
[2024-02-24] MEDS: LOVENOX 40 MG SC (17:15)
--- NOTE | 2024-02-24 17:40 | PTCARENOTE ---
Pt returned to bed at his request- reports 'I feel a little woozy' when I stand up but denies feeling dizzy. Gait steady. Denies CP or SOB. POx down to 89% on RA once returned to bed- O2 applied at 1 l/min w/ POx improved to 93%.
--- NOTE | 2024-02-24 20:00 | PTCARENOTE ---
Resumed care of pt this evening. Received pt w/ K-rider infusing via rt IJ central line. Pt is A&Ox3, can move all 4 extremities, and can make needs known. Pt is NSR on tele monitor, has no edema, and + pedal pulses bilaterally. Pt on 1L of O2
satting at 93% pulse ox. On auscultation pt lungs sound diminished at the bases bilaterally. Pt's abdomen is round w/ hypoactive BS. Pt using urinal to void. Pt's cath site on right wrist is KELLY and is C/D/I.
[2024-02-24] MEDS: BUMEX 2 MG IV (20:05)
[2024-02-25] VITALS (26 sets, daily range): BP systolic 82–109; BP diastolic 55–76; BMI 26.8
--- NOTE | 2024-02-25 | PTCARENOTE ---
Upon reassessment pt is resting comfortably. No other updates at this time.
[2024-02-25 00:02] LABS: Potassium 3.4 mmol/L (3.5-5.1)
[2024-02-25 05:00] LABS: Hematocrit 42.6 % (39.0-52.0); Hemoglobin 15.1 g/dL (13.0-18.0); Mean Corp Hgb Conc. 35.4 g/dL (33.0-37.0); Mean Corpuscular Volume 87.5 fL (80.0-94.0); Mean Platelet Volume 10.8 fL (7.4-10.4); Platelet Count 148 10^3/uL (130-400); Red Blood Cell Count 4.87 10^6/uL (4.70-6.10); Red Cell Dist. Width 13.2 % (11.5-14.5); White Blood Cell Count 13.4 10^3/uL (4.8-10.8)
[2024-02-25 05:24] LABS: Blood Urea Nitrogen 25 mg/dl (9-20); Calcium 8.6 mg/dl (8.4-10.2); Carbon Dioxide 36 mmol/L (22-30); Chloride 94 mmol/L (98-107); Estimated Creatinine Clearance 104 ml/min; Glucose 111 mg/dl (70-99); Magnesium 1.9 mg/dl (1.6-2.3); Potassium 3.4 mmol/L (3.5-5.1); Sodium 138 mmol/L (135-145); eGFR > 60.00
[2024-02-25] MEDS: KCL 100 IV (05:39)
[2024-02-25] MEDS: MAGNESIUM SULFATE 102 GRAMS IV (05:47)
--- NOTE | 2024-02-25 06:30 | PTCARENOTE ---
Huma stone and mag stone initiated by this RN post morning lab draw per order.
[2024-02-25] MEDS: LOW STRENGTH ASPIRIN 81 MG PO (07:34)
[2024-02-25] MEDS: COREG 3.125 MG PO (07:34)
[2024-02-25] MEDS: BRILINTA 90 MG PO ×2 (07:34→19:58)
[2024-02-25] MEDS: BUMEX 2 MG IV (07:36)
[2024-02-25] MEDS: NSS (PRESERVATIVE FREE) 10 ML IV (07:37)
[2024-02-25] MEDS: PROTONIX IV 40 MG IV (07:37)
--- NOTE | 2024-02-25 08:44 | W.PN.CARDCBS ---
Today's Communication / Plan
-
Continue Coreg. Add valsartan if blood pressure tolerates.
Continue aspirin and Brilinta. Crestor
Decrease Bumex to 1 mg IV twice daily.
Continues to improve. If blood pressure improves long-term would add Entresto.
Will start Farxiga
Impression / Plan
-
PCP: Dr. Jarquin
Cardiology: Dr. Sanders, last seen 03/30/23
IMPRESSION:
Admitted with acute STEMI 02/23/24
CAD
MV CAD s/p 4.0 mm and 3.5 mm Xience to prox Circ and 3.5 mm Xience to mid LAD 03/13/11
STEMI with occluded LAD and stent thrombosis of previously placed mid LAD stents treated aspiration thrombectomy, balloon angioplasty, shockwave lithotripsy and placement of new 3.5 mm and 4 mm [place] AMBER to LAD with overlap of the previously placed
proximal stent 02/23/24
patent previously placed prox Circ stent and and LITHOGRAPHER HELPER of stent in the mid Circ by ctah 02/23/24
LITHOGRAPHER HELPER RCA stable from last cath 03/13/11
Medication noncompliance
Ongoing smoker
Acute HF unknown EF
Hyperlipidemia
Hypertension
Family history of premature coronary disease
Nausea and vomiting
Hyperglycemia, prediabetes
Acute hypoxic respiratory insufficiency
Echo 12/01/12: EF 60%, mild concentric LVH without WMA, normal RV size and function, no AAS, no MR
Echo 02/23/24: EF 25 to 30%, aortic sclerosis.
Right heart catheterization 02/23/2024, RA 13, PA 45/26, PCWP 28, CO 4.05, CI 1.85
Plan:
-Patient came to [facility] very early 02/23/24 AM with chest pain after stopping all of his medications including aspirin 3 months ago. Patient does not have a reason for why he stopped all of his medications. Patient with STEMI on admission and evidence
of previously placed LAD stent and also LITHOGRAPHER HELPER of previously placed mid Circ stent. Patient had treatment of LAD with aspiration thrombectomy and placement of a new 3.5 mm and 4 mm [place] AMBER in the LAD overlapping the previously placed LAD stent. The
LITHOGRAPHER HELPER could not be opened.
-Right heart catheterization numbers reviewed. His wedge pressure was elevated and he was placed on a Bumex drip. Cardiac index was low consistent with cardiogenic shock.
-He has diuresed well overnight. Blood pressure remains on the low side. Continue Coreg 3.125 mg p.o. twice daily. Will attempt to add low-dose valsartan if blood pressure tolerates.
-Continue Bumex. Will decrease to 1 mg IV twice daily. Likely switch to p.o. Bumex in AM.
-Continue aspirin and Brilinta.
-Continue high-dose statin.
-Creatinine is normal. Replete potassium.
-He is clinically improving.
-Increase activity. Okay to transfer to IVU.
-We discussed the importance of compliance
Progress Note - Toe Sewer
Subjective
Date of Service: February 25, 2024
Feeling better. Diuresing well. No chest pains or shortness of breath
Objective
Labs:
02/25/24 04:44
02/25/24 04:44
Labs
Hgb 15.1 g/dL (13.0-18.0) 02/25/24 04:44
Hct 42.6 % (39.0-52.0) 02/25/24 04:44
Plt Count 148 10^3/uL (130-400) 02/25/24 04:44
PT 13.5 Sec (11.4-14.6) 02/23/24 00:24
INR 1.04 02/23/24 00:24
APTT 26.4 Sec (23.4-35.0) 02/23/24 00:24
Sodium 138 mmol/L (135-145) 02/25/24 04:44
Potassium 3.4 mmol/L (3.5-5.1) L 02/25/24 04:44
BUN 25 mg/dl (9-20) H 02/25/24 04:44
Creatinine 0.9 mg/dL (0.7-1.3) 02/25/24 04:44
Glucose 111 mg/dl (70-99) H 02/25/24 04:44
Troponins
02/23/24 02/23/24 02/23/24
00:25 03:06 09:41
Troponin I 0.476 H* 43.900 H* D 244.000 H* D
02/23/24 02/23/24
13:20 19:04
Troponin I 263.000 H* 194.000 H* D
Vital Signs and I&O:
Vital Signs
Temp Pulse Resp BP Pulse Ox
98.5 F 89 17 105/76 89
02/25/24 07:37 02/25/24 06:00 02/25/24 06:00 02/25/24 06:00 02/25/24 06:00
Vital Signs
Temp Pulse Resp BP Pulse Ox
98.5 F 89 17 105/76 89
02/25/24 07:37 02/25/24 06:00 02/25/24 06:00 02/25/24 06:00 02/25/24 06:00
Intake & Output
02/23/24 02/24/24 02/25/24 02/26/24
06:59 06:59 06:59 06:59
Intake Total 648 / 810 2012.2 / 2032.2 2472.0 / 2472.0
Output Total 500 / 500 4425 / 4425 2405 / 2405
Balance 148 / 310 -2411.8 / -2391.8 67.0 / 67.0
Physical Exam
Physical Exam
GEN: No distress, awake, Ox3
HEENT: supple, anicteric, mmm
LUNGS: CTA, no wheezes/rales
CV: Reg, S1/S2, 1/6 syst LSB, S3+
ABD: soft, BS+, NT/ND
EXT: No edema
NEURO: Gross non-focal
SKIN: No rash
[2024-02-25] MEDS: FARXIGA 10 MG PO (09:34)
[2024-02-25] MEDS: DIOVAN 40 MG PO (09:34)
--- NOTE | 2024-02-25 10:50 | PTCARENOTE ---
Assumed care of pt. Received pt w/ K-rider infusing via rt IJ central line. Pt is A&Ox3, can move all 4 extremities, and can make needs known. Pt is NSR on tele monitor, has no edema, and + pedal pulses bilaterally. Pt on 1L of O2 satting at 92%
pulse ox. On auscultation pt lungs sound diminished at the bases bilaterally. Pt's abdomen is round w/ hypoactive BS. Pt using urinal to void. Pt's cath site on right wrist WNL. No c/o chest pain.
--- NOTE | 2024-02-25 12:53 | W.PN.INTV ---
Today's Communication / Plan
Recommendations
Transferred to IVU
Continue cardiac management
Wean off oxygen
Diuretics
Replete potassium
Smoking cessation
Sign off
Assessment
-
ST elevation myocardial infarction 02/23/2024: Due to medical noncompliance-stop taking all medications about 3 months ago.
occluded LAD and stent thrombosis of previously placed mid LAD stents treated aspiration thrombectomy, balloon angioplasty, shockwave lithotripsy and placement of new 3.5 mm and 4 mm [place] AMBER to LAD with overlap of the previously placed proximal
stent 02/23/24
Ischemic cardiomyopathy-new EF 20 to 30%
troponin .0476> 43>244
Acute hypoxemic respiratory failure-currently mid flow oxygen
chest x-ray with mild pulmonary edema. Left lower lobe infiltrate possibly atelectatic
Suspect mild pulmonary edema
Vomiting: Unclear if this is ischemia equivalent versus gastritis as patient has some bloody vomiting.
Hyperglycemia
Laded hemoglobin A1c 5.8
Leukocytosis likely stress
This increased LFT disease-likely due to acute on
Conditions present prior admission:
Coronary artery disease status post stent placement to LAD and circumflex in 2010.
Tobacco abuse
Hypertension
Family history of premature coronary artery disease
Plan/recommendation:
Clinically improved.
Minimal oxygen requirements, wean off as able.
Lung exam improved.
Chest pain-free
PA catheter has been discontinued since yesterday
Nitroglycerin drip discontinued
Bumex drip discontinued
-
Cardiology correspondence reviewed
Continue cardiac management
IV diuretics
Antiplatelets etc.
Hypokalemia has been repleted.
Will continue to monitor closely and this patient has been diuresed
Continue cardiac monitoring..
-
Vomiting has resolved. Benign abdominal exam.
Tolerating diet.
Advance as tolerated
Will continue Protonix at least once a day while in the hospital
H&H is stable
-
Leukocytosis improved. No evidence for infection per
Follow LFTs-elevated likely due acute OR-follow
-
Smoking cessation encouraged. Smokes 1 pack/day. Eventually would qualify for lung cancer screening. He is aware of this. Will follow-up with primary care
-
DVT prophylaxis with Lovenox
-
Transferred to IVU.
No additional critical care recommendations. Will sign off. Please call pulmonary if any respiratory issues arise
Reviewed data reviewed:
echocardiogram 02/23/2024: Report reviewed
CONCLUSIONS
1. Mild concentric left ventricular hypertrophy with multiple regional wall
motion abnormalities, EF 25-30%, see below. Elevated left atrial pressure
2. Mitral annular calcification without mitral regurgitation and with normal
left atrium
3. Aortic sclerosis without stenosis, no aortic regurgitation
4. Normal right heart, could not determine pulmonary artery pressure
In August 2020 the EF was 50 to 55% with mild LVH.
Subjective Dataa
Subjective Data
Date of Service:
Date of Service: February 25, 2024
Chief Complaint: Recreational Leader Follow Up (Acute ST elevation myocardial infarction/cardiogenic shock)
Subjective:
Patient feels better.
Denies abdominal pain nausea or vomiting
Tolerated breakfast this morning
Denies any chest pain.
Review of Systems
General: Fever (n)
Cardiopulmonary: Dyspnea (none at rest)
GI: Abdominal Pain (n) and Nausea (n)
Neuro: Headache (n)
Objective Data
Data Reviewed
Vital Signs / I&O / Oxygen:
Vital Signs
Temp Pulse Resp BP Pulse Ox
98.5 F 89 19 104/70 93
02/25/24 07:37 02/25/24 10:05 02/25/24 10:05 02/25/24 10:05 02/25/24 10:05
Intake and Output
02/24/24 02/25/2424
06:59 06:59 06:59
Intake Total 2012.2032.2 2472.0 / 2872.0 620 / 620
Output Total 4425 / 4425 2405 / 2405 800 / 800
Balance -2411.8 / -2391.8 67.0 / 467.0 -180 / -180
SaO2 93
Nasal Cannula flow liters per 1
minute
Physical Exam
General: Comfortable
HEENT: Normocephalic
Cardiovascular: S1-S2
Respiratory: Crackles (improved) and Non-Labored Respirations
GI: Soft, Non Distended and Non Tender
Neurology: Awake, Alert, AO x 3 and No Motor Deficits
Skin: Warm
Labs/Micro/Reports
Lab Data
02/25/24 04:44
02/25/24 04:44
--- NOTE | 2024-02-25 13:32 | PTCARENOTE ---
Pt OOB in chair without complaints of pain. O2 weaned to RA. SpO2 90%.
--- NOTE | 2024-02-25 13:35 | CM ---
CM following re: discharge planning.
Discussed in Rounds, reviewed pt's chart, met with pt.
Per Rounds meeting, pt will be transferred to IVU, continue supportive care.
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 Pt reports he has family cardiac history, had stent placed in his 31th.
D/C plan: home with anticipated no needs. Family to transport at discharge.
CM will follow with discharge plan updates as hospitalization progresses
--- NOTE | 2024-02-25 16:54 | PTCARENOTE ---
Right IJ Cordis removed by SUPERVISOR FELTINGSUDHIR Olea.
[2024-02-25] MEDS: LOVENOX 40 MG SC (17:46)
[2024-02-25] MEDS: CRESTOR 40 MG PO (17:46)
--- NOTE | 2024-02-25 18:31 | PTCARENOTE ---
Report given to SUDHIR Lucio. Pt assisted OOB to wheelchair and escorted to 2250 without issue.
--- NOTE | 2024-02-25 18:38 | PTCARENOTE ---
Rec'd Pt, tx from ICU, A,A+Ox3, Denies pain. R neck dsg D+I. R radial site RISK MANAGER, C+D.
[2024-02-25] MEDS: COREG PO (19:57)
--- NOTE | 2024-02-25 20:25 | PTCARENOTE ---
Pt. received at change of shift. Pt. seen and assessed in room. No complaints at this time. Pt. AOx3, tele reading NSR. BP 90s/60s. 8pm Coreg and bumex held per MD orders. RN explains plan of care to patient, pt. verbalizes understanding. Call kelley
within reach. Continuing to monitor at this time.
[2024-02-25] MEDS: TYLENOL 650 MG PO (22:33)
[2024-02-25] MEDS: BENADRYL 25 MG IV (22:33)
[2024-02-26] VITALS (11 sets, daily range): BP systolic 87–112; BP diastolic 60–73; BMI 27.6
[2024-02-26 04:38] LABS: Blood Urea Nitrogen 30 mg/dl (9-20); Calcium 8.8 mg/dl (8.4-10.2); Carbon Dioxide 28 mmol/L (22-30); Chloride 98 mmol/L (98-107); Estimated Creatinine Clearance 117 ml/min; Glucose 107 mg/dl (70-99); Potassium 3.3 mmol/L (3.5-5.1); Sodium 139 mmol/L (135-145); eGFR > 60.00
[2024-02-26 04:42] LABS: NT-proBNP 1440 pg/ml
[2024-02-26] MEDS: BRILINTA 90 MG PO ×2 (09:15→19:22)
[2024-02-26] MEDS: LOW STRENGTH ASPIRIN 81 MG PO (09:16)
[2024-02-26] MEDS: COREG 3.125 MG PO ×2 (09:16→20:41)
[2024-02-26] MEDS: PROTONIX 40 MG PO (09:17)
[2024-02-26] MEDS: DIOVAN 40 MG PO (09:17)
[2024-02-26] MEDS: FARXIGA 10 MG PO (09:17)
[2024-02-26] MEDS: FLUSH (NSS) 2 FLUSH IV (09:18)
--- NOTE | 2024-02-26 09:54 | PTCARENOTE ---
Received patient this morning resting in bed. Denies any chest pain or sob. Ambulated in the gee without difficulty, right radial site is dry and intact. Patient states he has been watching educational programs re: CAD, given heart failure and
healthy heart educational booklets.
--- NOTE | 2024-02-26 10:07 | W.PN.CARDCBS ---
Today's Communication / Plan
-
Optimize goal-directed medical therapy following STEMI with ischemic cardiomyopathy and cardiogenic shock
Discharge planning
Impression / Plan
-
PCP: Dr. Jarquin
Cardiology: Dr. Sanders, last seen 03/30/23
IMPRESSION:
Admitted with acute STEMI 02/23/24
CAD
MV CAD s/p 4.0 mm and 3.5 mm Xience to prox Circ and 3.5 mm Xience to mid LAD 03/13/11
STEMI with occluded LAD and stent thrombosis of previously placed mid LAD stents treated aspiration thrombectomy, balloon angioplasty, shockwave lithotripsy and placement of new 3.5 mm and 4 mm [place] AMBER to LAD with overlap of the previously placed
proximal stent 02/23/24
patent previously placed prox Circ stent and and CAMPUS COORDINATOR of stent in the mid Circ by ctah 02/23/24
CAMPUS COORDINATOR RCA stable from last cath 03/13/11
Medication noncompliance
Ongoing smoker
Acute HF unknown EF
Hyperlipidemia
Hypertension
Family history of premature coronary disease
Nausea and vomiting
Hyperglycemia, prediabetes
Acute hypoxic respiratory insufficiency
Echo 12/01/12: EF 60%, mild concentric LVH without WMA, normal RV size and function, no AAS, no MR
Echo 02/23/24: EF 25 to 30%, aortic sclerosis.
Right heart catheterization 02/23/2024, RA 13, PA 45/26, PCWP 28, CO 4.05, CI 1.85
Plan:
-Multivessel coronary artery disease with prior multivessel stenting involving LAD and circumflex with CAMPUS COORDINATOR RCA who presented with acute anterior STEMI 02/23/2024
-Patient had been noncompliant with follow-up, last seen in March [address] Pettit and had stopped all of his medications including aspirin approximately 3 months ago.
-Left heart catheterization with Dr. Guerrier 02/23/2024 reviewed. He thrombosed his LAD stent after discontinuing all medications. The LAD was 100% occluded mid and the RCA is 100% and the LCx/OM is 100%. s/p treatment of LAD with aspiration
thrombectomy and placement of a new 3.5 mm and 4 mm [place] AMBER in the LAD overlapping the previously placed LAD stent. The CAMPUS COORDINATOR could not be opened.
-He completed Integrilin protocol.
-Acute STEMI complicated by new ischemic cardiomyopathy and cardiogenic shock
-2D echocardiogram 02/23/2024 with EF now 25-30% with multiple regional wall motion abnormalities without significant valve pathology
-proBNP 1440
-Right heart catheterization 02/23/2024 with wedge pressure 28, cardiac output 4.05 L/min, cardiac index 1.85 L/min/m�. SVR 1620, PVR 1.5 Wood units. He did not require inotrope
-He responded well to an IV Bumex drip followed by IV Bumex 2 mg IV twice daily beginning on February 23
-Reviewed his presentation, study findings and goal-directed medical therapy. We discussed the importance of compliance with medications, diet, outpatient follow-up etc.
-Consult for heart failure education and heart failure diet education
-Discussed tobacco use and strongly suggest cessation
-Goal-directed medical therapy initiated with ongoing titration:
-Continue Carvedilol 3.125 mg twice daily with plan for up titration if blood pressure allows. Goal heart rates 50s to 60s.
-Transition IV Bumex to oral Lasix 20 mg daily
-Continue valsartan 40 mg daily and consider transition to Entresto as an outpatient if blood pressure allows
-Continue uninterrupted aspirin/Brilinta for at least 1 year and consider maintenance Brilinta following 1 year given multivessel disease. Case management reports Brilinta is covered
-Continue Farxiga 10 mg daily-will start preauthorization
-Add Aldactone 12.5 mg daily
-Continue high intensity statin. Patient did not have a lipid profile this admission however a lipid profile from 2010 markedly abnormal. Have added on a low fasting lipid profile to this morning's labs
-Hemoglobin A1c 5.8% consistent with prediabetes. We reviewed importance of low sugar/low salt/low carbohydrate diet with patient. Jose added this admission. Goal normoglycemia
-Cardiac rehab consult
-He has a job in [place] which has him flying out of state often. He was supposed to fly to [place] this weekend but has canceled this trip. I advised him to potentially aged or disabled care worker if able until seen in the office and avoid long trips/flights at
this time
-Anticipate discharge home tomorrow
Reviewed with the patient and his mother over the phone; answered all questions
Progress Note - Magazine Feeder
Subjective
Date of Service: February 26, 2024
Seen and examined. No chest pain or pressure. Improved shortness of breath. Anxious for discharge home
Objective
Labs:
02/25/24 04:44
02/26/24 04:00
Labs
Hgb 15.1 g/dL (13.0-18.0) 02/25/24 04:44
Hct 42.6 % (39.0-52.0) 02/25/24 04:44
Plt Count 148 10^3/uL (130-400) 02/25/24 04:44
PT 13.5 Sec (11.4-14.6) 02/23/24 00:24
INR 1.04 02/23/24 00:24
APTT 26.4 Sec (23.4-35.0) 02/23/24 00:24
Sodium 139 mmol/L (135-145) 02/26/24 04:00
Potassium 3.3 mmol/L (3.5-5.1) L 02/26/24 04:00
BUN 30 mg/dl (9-20) H 02/26/24 04:00
Creatinine 0.8 mg/dL (0.7-1.3) 02/26/24 04:00
Glucose 107 mg/dl (70-99) H 02/26/24 04:00
Troponins
02/23/24 02/23/24 02/23/24
09:41 13:20 19:04
Troponin I 244.000 H* D 263.000 H* 194.000 H* D
Vital Signs and I&O:
Vital Signs
Temp Pulse Resp BP Pulse Ox
98.8 F 91 20 101/ 96
02/26/24 07:34 02/26/24 08:30 02/26/24 07:34 02/26/24 07:34 02/26/24 07:34
Vital Signs
Temp Pulse Resp BP Pulse Ox
98.8 F 91 20 101 96
02/26/24 07:34 02/26/24 08:30 02/26/24 07:34 02/26/24 07:34 02/26/24 07:34
Intake & Output
02/24/24 02/25/24 02/26/24 02/27/24
06:59 06:59 06:59 06:59
Intake Total / 2032. 2472.0 / 2872.0 860 / 860
Output Total 4425 / 4425 2405 / 2405 1300 / 1300
Balance -2411.8 / -2391.8 67.0 / 467.0 -440 / -440
Physical Exam
Physical Exam
GEN: No distress, awake, Ox3
HEENT: supple, anicteric, mmm
LUNGS: CTA, no wheezes/rales
CV: Reg, S1/S2, no murmur
ABD: soft, BS+, NT/ND
EXT: No edema. Stanley-Paolo catheter site with dressing. Radial cath site intact without hematoma
NEURO: Gross non-focal
[2024-02-26] MEDS: KCL 40 MEQ PO (10:15)
--- NOTE | 2024-02-26 11:59 | PTCARENOTE ---
Patient ordered lasix and aldactone. BP 92/67 on RUE, 87/64 LUE, lying in bed and asymptomatic. Dr. Weller notified, will re-assess at 1500 as instructed.
--- NOTE | 2024-02-26 12:33 | CM ---
Pricing on Brilinta through the patient's prescription plan is $45 for a 30 day supply. Patient qualifies for the $5 copay card. I placed it in his red discharge folder
Pricing on Farxiga, patient will need a prior authorization. I notified Jaycee London. MARS can be called into [phone] or faxed to [phone]. I gave patient a free 30 day coupon in his red discharge folder.
[2024-02-26 14:11] LABS: HDL Cholesterol 35 mg/dl; LDL Cholesterol, Calculated 140 mg/dl; Total Cholesterol 229 mg/dl (50-199); Triglyceride 272 mg/dl (10-149); Very Low Density Lipoprotein 54 mg/dl (0-30)
[2024-02-26] MEDS: LASIX 20 MG PO (14:59)
--- NOTE | 2024-02-26 15:03 | PTCARENOTE ---
Patient ordered aldactone and PO lasix this morning by Dr. Ruano however SBP 80-90's and instructed to hold off until 1500 and recheck VS. BP now 107/73, to give patient PO lasix now and recheck BP at dinner re: aldactone.
[2024-02-26] MEDS: CRESTOR 40 MG PO (17:17)
[2024-02-26] MEDS: ALDACTONE 12.5 MG PO (17:28)
[2024-02-26] MEDS: LOVENOX 40 MG SC (17:29)
--- NOTE | 2024-02-26 22:08 | PTCARENOTE ---
Rec'd pt at handoff. AOX3. Tele- SR. HR 80-90s. Pt ambulatory around room w/ steady gait. R IJ dsg is c/d/i. No c/o pain/discomfort at this time. Plan of care reviewed w/pt. Verbalizes understanding. Currently in bed; call warren w/in reach.
[2024-02-27 02:08] VITALS: BP 98/71
[2024-02-27 02:44] LABS: Blood Urea Nitrogen 25 mg/dl (9-20); Calcium 8.6 mg/dl (8.4-10.2); Carbon Dioxide 27 mmol/L (22-30); Chloride 100 mmol/L (98-107); Estimated Creatinine Clearance 117 ml/min; Glucose 119 mg/dl (70-99); Potassium 3.5 mmol/L (3.5-5.1); Sodium 138 mmol/L (135-145); eGFR > 60.00
[2024-02-27 06:00] VITALS: BMI 27.7
--- NOTE | 2024-02-27 07:10 | W.PN.CARDCBS ---
Addendum entered and electronically signed by Ioana Hare PA-C 02/27/24 11:24:
[id number]
Addendum entered and electronically signed by Abelino Lainez MD 02/27/24 09:06:
Patient seen and examined
Agree with KENY Hare's note and assessment
Agree with KENY Hare's plan
�
����Physical Exam
�
���������������������General:��no apparent distress, not acutely ill
�
���������������������������Neck:��supple. no meningeal signs. normal psoterior pharynx
������������������������
���������������������������Heart:��s1/s2 regular rate and rhythm, no murmur. equal radial pulses.
�
��������������������������Lungs: ��no acute respiratory distress. clear bilaterally
�
����������������������Abdomen:�normal bowel sounds. not tender. no CVAT
�
��������������������������Neuro:��alert and oriented. no focal neurological deficits
�
������������������������������Skin: ��no rash
�
�����������������������Psychiatric:�well kept. interactive and cooperative
�
�����������������������Extremities:��no edema. no calf tenderness. negative homans. good distal pulses
�
Telemetry reviewed without significant arrhythmia
�
��
�
IMPRESSION:
Admitted with acute STEMI 02/23/24
CAD
MV CAD s/p 4.0 mm and 3.5 mm Xience to prox Circ and 3.5 mm Xience to mid LAD 03/13/11
STEMI with occluded LAD and stent thrombosis of previously placed mid LAD stents treated aspiration thrombectomy, balloon angioplasty, shockwave lithotripsy and placement of new 3.5 mm and 4 mm [place] AMBER to LAD with overlap of the previously placed
proximal stent 02/23/24
patent previously placed prox Circ stent and and [employer] of stent in the mid Circ by cath 02/23/24
[employer] RCA stable from last cath 03/13/11Medication noncompliance
Ongoing smoker
Acute HFrEF
Hyperlipidemia
Hypertension
Family history of premature coronary disease
Nausea and vomiting
Hyperglycemia, prediabetes
Acute hypoxic respiratory insufficiency
Hypokalemia
Echo 12/01/12: EF 60%, mild concentric LVH without WMA, normal RV size and function, no AAS, no MR
Echo 02/23/24: EF 25 to 30%, aortic sclerosis.
Right heart catheterization 02/23/2024, RA 13, PA 45/26, PCWP 28, CO 4.05, CI 1.85
Plan:
-Patient came to [facility] very early 02/23/24 AM with chest pain after stopping all of his medications including aspirin 3 months ago. Patient does not have a reason for why he stopped all of his medications. Patient with STEMI on admission and evidence
of previously placed LAD stent and also [employer] of previously placed mid Circ stent. Patient had treatment of LAD with aspiration thrombectomy and placement of a new 3.5 mm and 4 mm [place] AMBER in the LAD overlapping the previously placed LAD stent. The
[employer]ER could not be opened. He completed Integrilin protocol.
-New ICM EF 25%
-Diuresed with Bumex gtt and then Bumex IV BID and now ordered Lasix 20 mg PO daily. Weight down 11 lbs this admission. Patient was not taking a diuretic prior to admission.
-Patient was NOT taking Toprol XL, lisinopril, aspirin or atorvastatin for 3 months prior to admission
-New to Coreg 3.125 mg BID
-New to valsartan 40 mg daily
-New to spironolactone 12.5 mg daily
-Check BMP in 1 week as an outpatient.
-New to Farxiga 10 mg daily. Need prior auth to be completed as an outpatient, but can use 30 day free card for now
-He was advised to quit smoking
-LDL 140, new to Crestor 40 mg daily
-New to aspirin and Brilinta, he can use the $5 co-ay card
-Recommended to cancel his work trip to [place] this weekend. He can send [facility] paperwork to cardiology office
-Tele reviewed by me form overnight was unremarkable. Patient can be d/c'd to home 02/27/24 with cardiology f/u arranged
-We discussed the need for compliance with all of his new medications as he has a good chance to recover his cardiomyopathy and keep his stent patent if he is taking medications
Original Note:
Today's Communication / Plan
-
D/C to home
E-scribed new cardiac meds with refills
Cardiology f/u arranged
51 minutes in face to face, chart prep, coordinating care for patient
Impression / Plan
-
PCP: Dr. Jarquin
Cardiology: Dr. Sanders, last seen 03/30/23
IMPRESSION:
Admitted with acute STEMI 02/23/24
CAD
MV CAD s/p 4.0 mm and 3.5 mm Xience to prox Circ and 3.5 mm Xience to mid LAD 03/13/11
STEMI with occluded LAD and stent thrombosis of previously placed mid LAD stents treated aspiration thrombectomy, balloon angioplasty, shockwave lithotripsy and placement of new 3.5 mm and 4 mm [place] AMBER to LAD with overlap of the previously placed
proximal stent 02/23/24
patent previously placed prox Circ stent and and [employer] of stent in the mid Circ by cath 02/23/24
[employer] RCA stable from last cath 03/13/11
Medication noncompliance
Ongoing smoker
Acute HFrEF
Hyperlipidemia
Hypertension
Family history of premature coronary disease
Nausea and vomiting
Hyperglycemia, prediabetes
Acute hypoxic respiratory insufficiency
Hypokalemia
Echo 12/01/12: EF 60%, mild concentric LVH without WMA, normal RV size and function, no AAS, no MR
Echo 02/23/24: EF 25 to 30%, aortic sclerosis.
Right heart catheterization 02/23/2024, RA 13, PA 45/26, PCWP 28, CO 4.05, CI 1.85
Plan:
-Patient came to [facility] very early 02/23/24 AM with chest pain after stopping all of his medications including aspirin 3 months ago. Patient does not have a reason for why he stopped all of his medications. Patient with STEMI on admission and evidence
of previously placed LAD stent and also [employer] of previously placed mid Circ stent. Patient had treatment of LAD with aspiration thrombectomy and placement of a new 3.5 mm and 4 mm [place] AMBER in the LAD overlapping the previously placed LAD stent. The
[employer]ER could not be opened. He completed Integrilin protocol.
-New ICM EF 25%
-Diuresed with Bumex gtt and then Bumex IV BID and now ordered Lasix 20 mg PO daily. Weight down 11 lbs this admission. Patient was not taking a diuretic prior to admission.
-Patient was NOT taking Toprol XL, lisinopril, aspirin or atorvastatin for 3 months prior to admission
-New to Coreg 3.125 mg BID
-New to valsartan 40 mg daily
-New to spironolactone 12.5 mg daily
-Check BMP in 1 week as an outpatient.
-New to Farxiga 10 mg daily. Need prior auth to be completed as an outpatient, but can use 30 day free card for now
-He was advised to quit smoking
-LDL 140, new to Crestor 40 mg daily
-New to aspirin and Brilinta, he can use the $5 co-ay card
-Recommended to cancel his work trip to [place] this weekend. He can send [facility] paperwork to cardiology office
-Tele reviewed by me form overnight was unremarkable. Patient can be d/c'd to home 02/27/24 with cardiology f/u arranged
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
Subjective
Date of Service: February 27, 2024
Feels well, no chest pain
Objective
Labs:
02/25/24 04:44
02/27/24 02:18
Labs
Hgb 15.1 g/dL (13.0-18.0) 02/25/24 04:44
Hct 42.6 % (39.0-52.0) 02/25/24 04:44
Plt Count 148 10^3/uL (130-400) 02/25/24 04:44
PT 13.5 Sec (11.4-14.6) 02/23/24 00:24
INR 1.04 02/23/24 00:24
APTT 26.4 Sec (23.4-35.0) 02/23/24 00:24
Sodium 138 mmol/L (135-145) 02/27/24 02:18
Potassium 3.5 mmol/L (3.5-5.1) 02/27/24 02:18
BUN 25 mg/dl (9-20) H 02/27/24 02:18
Creatinine 0.8 mg/dL (0.7-1.3) 02/27/24 02:18
Glucose 119 mg/dl (70-99) H 02/27/24 02:18
Vital Signs and I&O:
Vital Signs
Temp Pulse Resp BP Pulse Ox
98.2 F 81 16 98/71 95
02/27/24 02:24 02/27/24 02:08 02/27/24 02:24 02/27/24 02:08 02/27/24 02:24
Vital Signs
Temp Pulse Resp BP Pulse Ox
98.2 F 81 16 98/71 95
02/27/24 02:24 02/27/24 02:08 02/27/24 02:24 02/27/24 02:08 02/27/24 02:24
Intake & Output
02/25/24 02/26/24 02/27/24 02/28/24
06:59 06:59 06:59 06:59
Intake Total 2472.0 / 2872.0 860 / 860 1080 / 1080
Output Total 2405 / 2405 1300 / 1300 1300 / 1300
Balance 67.0 / 467.0 -440 / -440 -220 / -220
Physical Exam
Physical Exam
GEN: NAD. AAOx3
HEENT: MMM
LUNGS: No audible wheeze
CV: SR
ABD: ND
EXT: No edema B/L
NEURO: Gross non-focal
SKIN: No rash
[2024-02-27 07:34] VITALS: BP 106/74
[2024-02-27] MEDS: ALDACTONE 12.5 MG PO (08:38)
[2024-02-27] MEDS: DIOVAN 40 MG PO (08:40)
[2024-02-27] MEDS: COREG 3.125 MG PO (08:40)
[2024-02-27] MEDS: FARXIGA 10 MG PO (08:40)
[2024-02-27] MEDS: LASIX 20 MG PO (08:40)
[2024-02-27] MEDS: PROTONIX 40 MG PO (08:40)
[2024-02-27] MEDS: LOW STRENGTH ASPIRIN 81 MG PO (08:40)
[2024-02-27] MEDS: BRILINTA 90 MG PO (08:41)
--- NOTE | 2024-02-27 10:40 | W.DS.TRANS ---
DC Summary - Qc Chemist
-
Discharge Instructions:
Discharge Diagnosis/Procedures STEMI, Athrectomy, angioplasty and PCI of LAD
Diet Low Cholesterol,2 Gram Sodium,Restrict fluids to
48 oz
Activity No strenuous activity
Driving Restrictions No driving for 24 hours
Bathing Restrictions OK to Shower
Blood Work Check non-fasting blood work in 1 week, lab slip
on chart
Other Services Cardiac Rehab
Specialty Instructions Weigh Daily
Instructions:
Stand-Alone Forms: DC Instructions- Cath/EP Lab
Changes to Home Medications: Yes
Discharge Medications:
DC Medications w/original date entered in [employer]
aspirin 81 mg chewable tablet 81 mg PO DAILY 02/26/24
carvedilol 3.125 mg tablet 3.125 mg PO BID Heart disease/condition #60 tabs 02/27/24
dapagliflozin propanediol 10 mg tablet 10 mg PO DAILY Heart disease/condition #30 tabs 02/27/24
furosemide 20 mg tablet 20 mg PO DAILY Heart Failure #30 tabs 02/27/24
pantoprazole 40 mg tablet,delayed release 40 mg PO DAILY Gastrointestinal issue #30 tabs 02/27/24
rosuvastatin 40 mg tablet 40 mg PO QPM Heart disease/condition #30 tabs 02/27/24
spironolactone 25 mg tablet 12.5 mg (1/2 x 25 mg) PO DAILY Heart Failure #30 tabs 02/27/24
ticagrelor 90 mg tablet (Brilinta) 90 mg PO BID Heart disease/condition #60 tabs 02/27/24
valsartan 40 mg tablet 40 mg PO DAILY Heart disease/condition #30 tabs 02/27/24
Home Medication Changes
New to all medications
Pending Results: No
[2024-02-27 11:20] VITALS: BP 115/76
--- NOTE | 2024-02-27 11:47 | PTCARENOTE ---
02/27/24 D/C order received. IV and Telem pack removed. Discharge instructions, medications, follow up appointments, lab work and daily activity, diet, daily weights discussed in length with patient. Reinforced the importance of taking his
medications daily and not stopping them. All questions were answered, support given. Pt escorted out by staff to home.
== END 2024-02-27 11:51 | disposition home or self-care (01) | DRG 323 ==
LOC: IVU 02:22
PROVIDERS: Internal Medicine Cardiovascular Disease; Nurse Practitioner Family; Physician Assistant Medical; Radiology Diagnostic Radiology; ADMITTING PHYSICIAN Internal Medicine Cardiovascular Disease; ATTENDING PHYSICIAN Internal Medicine Interventional Cardiology; CONSULT PHYSICIAN Internal Medicine Critical Care Medicine; EMERGENCY PHYSICIAN Student in an Organized Health Care Education/Training Program
PROC: 02F03ZZ Fragmentation in Coronary Artery, One Artery, Percutaneous Approach (ICD-10-PCS; 2024-02-23)
PROC: B240ZZ3 Ultrasonography of Single Coronary Artery, Intravascular (ICD-10-PCS; 2024-02-23)
PROC: 4A023N6 Measurement of Cardiac Sampling and Pressure, Right Heart, Percutaneous Approach (ICD-10-PCS; 2024-02-23)
PROC: 4A023N7 Measurement of Cardiac Sampling and Pressure, Left Heart, Percutaneous Approach (ICD-10-PCS; 2024-02-23)
PROC: 02C03ZZ Extirpation of Matter from Coronary Artery, One Artery, Percutaneous Approach (ICD-10-PCS; 2024-02-23)
PROC: 027035Z Dilation of Coronary Artery, One Artery with Two Drug-eluting Intraluminal Devices, Percutaneous Approach (ICD-10-PCS; 2024-02-23)
PROC: 02HQ32Z Insertion of Monitoring Device into Right Pulmonary Artery, Percutaneous Approach (ICD-10-PCS; 2024-02-23)
PROC: B2111ZZ Fluoroscopy of Multiple Coronary Arteries using Low Osmolar Contrast (ICD-10-PCS; 2024-02-23)
PROC: 02HP32Z Insertion of Monitoring Device into Pulmonary Trunk, Percutaneous Approach (ICD-10-PCS; 2024-02-23)
PROC: B2141ZZ Fluoroscopy of Right Heart using Low Osmolar Contrast (ICD-10-PCS; 2024-02-23)
DX: T82.867A Thrombosis due to cardiac prosthetic devices, implants and grafts, initial encounter (principal); I21.A9 Other myocardial infarction type; I50.21 Acute systolic (congestive) heart failure; R57.0 Cardiogenic shock; K92.0 Hematemesis; F17.200 Nicotine dependence, unspecified, uncomplicated; I11.0 Hypertensive heart disease with heart failure; I25.10 Atherosclerotic heart disease of native coronary artery without angina pectoris; E11.65 Type 2 diabetes mellitus with hyperglycemia; I25.5 Ischemic cardiomyopathy; E87.6 Hypokalemia; D72.829 Elevated white blood cell count, unspecified; I34.81 Nonrheumatic mitral (valve) annulus calcification; I70.0 Atherosclerosis of aorta; R09.02 Hypoxemia; R06.89 Other abnormalities of breathing; E78.00 Pure hypercholesterolemia, unspecified; Y84.0 Cardiac catheterization as the cause of abnormal reaction of the patient, or of later complication, without mention of misadventure at the time of the procedure; Y92.9 Unspecified place or not applicable; Z91.199 Patient's noncompliance with other medical treatment and regimen due to unspecified reason; Z91.148 Patient's other noncompliance with medication regimen for other reason; Z79.82 Long term (current) use of aspirin; Z82.49 Family history of ischemic heart disease and other diseases of the circulatory system
CPT/HCPCS: 71045; 80048; 80053; 80061; 83036; 83735; 83880; 84132; 84484; 85025; 85027; 85347; 85610; 85730; 92978; 93005; 93306; 93451; 93458; 93503; 99291; 99406; C1725; C1753; C1761; C1769; C1874; C1894; C9606; J1327; Q9967

== ENCOUNTER 2024-04-11 08:40 | Outpatient (RCR) | payer OTHER, SELFPAY | END 2024-04-11 23:59 | disposition home or self-care (01) | LOC: CRHB 08:40 | PROVIDERS: ATTENDING PHYSICIAN Nuclear Medicine Nuclear Cardiology | DX: I25.10 Atherosclerotic heart disease of native coronary artery without angina pectoris (principal); Z95.5 Presence of coronary angioplasty implant and graft; I25.2 Old myocardial infarction | CPT/HCPCS: G0422; G0423 ==

== ENCOUNTER 2024-05-13 08:50 | Outpatient (RCR) | payer OTHER, SELFPAY | END 2024-05-13 23:59 | disposition home or self-care (01) | LOC: CRHB 08:50 | PROVIDERS: ATTENDING PHYSICIAN Nuclear Medicine Nuclear Cardiology | DX: I25.2 Old myocardial infarction (principal); I25.10 Atherosclerotic heart disease of native coronary artery without angina pectoris (principal); Z95.5 Presence of coronary angioplasty implant and graft | CPT/HCPCS: G0422 ==

== ENCOUNTER → 2024-06-14 07:22 | Outpatient (REF) | payer OTHER, SELFPAY | LOC: RCS 07:22 | PROVIDERS: ATTENDING PHYSICIAN Nuclear Medicine Nuclear Cardiology; FAMILY PHYSICIAN Internal Medicine | DX: I25.10 Atherosclerotic heart disease of native coronary artery without angina pectoris (principal); I10 Essential (primary) hypertension; E78.2 Mixed hyperlipidemia; I25.2 Old myocardial infarction | CPT/HCPCS: 93306 ==

== ENCOUNTER 2024-06-17 17:39 | Outpatient (RCR) | payer OTHER, SELFPAY | END 2024-06-17 23:59 | disposition home or self-care (01) | LOC: CRHB 17:39 | PROVIDERS: ATTENDING PHYSICIAN Nuclear Medicine Nuclear Cardiology | DX: I25.10 Atherosclerotic heart disease of native coronary artery without angina pectoris (principal); I25.2 Old myocardial infarction (principal); Z95.5 Presence of coronary angioplasty implant and graft | CPT/HCPCS: G0422; G0423 ==

== ENCOUNTER 2024-07-08 17:29 | Outpatient (RCR) | payer OTHER, SELFPAY | END 2024-07-08 23:59 | disposition home or self-care (01) | LOC: CRHB 17:29 | PROVIDERS: ATTENDING PHYSICIAN Nuclear Medicine Nuclear Cardiology | DX: I25.10 Atherosclerotic heart disease of native coronary artery without angina pectoris (principal); I21.01 ST elevation (STEMI) myocardial infarction involving left main coronary artery (principal); I25.2 Old myocardial infarction; Z95.5 Presence of coronary angioplasty implant and graft | CPT/HCPCS: 93798; G0422 ==

== ENCOUNTER 2024-07-25 17:15 | Outpatient (RCR) | payer OTHER, SELFPAY | END 2024-07-25 23:59 | disposition home or self-care (01) | LOC: CRHB 17:15 | PROVIDERS: ATTENDING PHYSICIAN Nuclear Medicine Nuclear Cardiology | DX: I21.01 ST elevation (STEMI) myocardial infarction involving left main coronary artery (principal); Z95.5 Presence of coronary angioplasty implant and graft; I25.10 Atherosclerotic heart disease of native coronary artery without angina pectoris; I25.2 Old myocardial infarction | CPT/HCPCS: G0422 ==

== ENCOUNTER → 2024-09-05 16:48 | Outpatient (REF) | payer OTHER, SELFPAY | LOC: RAD 16:48 | PROVIDERS: ATTENDING PHYSICIAN Internal Medicine | DX: R05.1 Acute cough (principal) | CPT/HCPCS: 71046 ==